=== PATIENT | male | born 1970 | race Caucasian/White ===

== ENCOUNTER 2017-05-14 12:53 | Inpatient (IN) | payer SELFPAY ==
[~2017-05-14] VITALS: Ht 172.7 cm; Wt 154.3 kg
[2017-05-14] VITALS (10 sets, daily range): BP systolic 153–239; BP diastolic 71–163; PULSE 80–103; RESP 18–21; TEMP 97.4–98.1; O2SAT 92–98
[2017-05-14] MEDS ORDERED: LISI10TA3 PO (14:15)
[2017-05-14] MEDS ORDERED: METF850T PO (14:15)
[2017-05-14] MEDS ORDERED: ALPR0.5T3 PO (14:20)
[2017-05-14] MEDS ORDERED: METO50TA PO (14:20)
[2017-05-14] MEDS ORDERED: HYDR-3583 PO (14:20)
[2017-05-14] MEDS ORDERED: SIMV40TA PO (14:20)
[2017-05-14] MEDS ORDERED: SERT-129 PO (14:20)
[2017-05-14] MEDS ORDERED: SODIUM CHLOR 0.9% 1000 ML INJ 1,000 ML IV SCH ×2 (14:25→16:22)
[2017-05-14] MEDS ORDERED: SODIUM CHLORIDE 0.9% FLUSH 10 ML FLUSH IV FLUSH PRN (14:30)
--- NOTE | 2017-05-14 14:38 | PD ---
HPI Chief Complaint: Abdominal Pain Time Seen by Provider: 13:59 Travel History International Travel<30 days: No Contact w/Intl Traveler<30days: No Traveled to known affect area: No History of Present Illness HPI So 46-year-old man who presents to the emergency department complaining of abdominal pain. He reports that about a week or 2 ago he had some epigastric pain and gas-like bloating that went away on its own. Symptoms got worse and he went to [facility] where he was diagnosed with liver inflammation and was told he needed surgery of his gallbladder out. He however improved with antibiotics and was discharged home a day or 2 ago. After being discharged home in worsening pain in the epigastrium and right upper quadrant, worse with any eating. States has pain with drinking water also. Not had previous similar symptoms in the past. No other complaints. History Past Medical History Narrative Medical Diabetes Hypertension on hyperlipidemia Obesity Past Surgical History Surgical History: No Previous Surgery Social History Alcohol Use: Yes (OCC) Tobacco Use: No Allergies-Medications (Allergen,Severity, Reaction): Coded Allergies: No Known Allergies (Unverified , 05/14/17) Reported Meds & Prescriptions Reported Meds & Active Scripts Active Reported Hydrocodone-Acetamin 10-325 mg (Hydrocodone/Acetaminophen) 10 Mg-325 Mg Tablet 10 Mg PO Q6HR PRN Alprazolam 0.5 Mg Tab 0.5 Mg PO Q4H PRN Sertraline (Sertraline HCl) 100 Mg Tab 100 Mg PO DAILY Simvastatin 40 Mg Tab 40 Mg PO HS Metoprolol Tartrate 50 Mg Tab 50 Mg PO BID Lisinopril 10 Mg Tab 10 Mg PO BID Metformin (Metformin HCl) 850 Mg Tab 850 Mg PO BIDPC Review of Systems Except as stated in HPI: all other systems reviewed are Neg Physical Exam Narrative GENERAL: This 46-year-old man, no acute distress. SKIN: Focused skin assessment warm/dry. HEAD: Atraumatic. Normocephalic. EYES: Pupils equal and round. No scleral icterus. No injection or drainage. ENT: No nasal bleeding or discharge. Mucous membranes pink and moist. NECK: Trachea midline. No JVD. CARDIOVASCULAR: Regular rate and rhythm. No murmur appreciated. RESPIRATORY: No accessory muscle use. Clear to auscultation. Breath sounds equal bilaterally. GASTROINTESTINAL: Obese, rotund. Moderate epigastric and right upper quadrant tenderness with a little bit of voluntary guarding. Minimal diffuse tenderness. MUSCULOSKELETAL: No obvious deformities. No edema. NEUROLOGICAL: Awake and alert. No obvious cranial nerve deficits. Motor grossly within normal limits. Normal speech. Data Data Last Documented VS Vital Signs Date Time Temp Pulse Resp B/P (MAP) Pulse Ox O2 Delivery O2 Flow Rate FiO2 05/14/17 14:09 18 05/14/17 12:55 97.4 92 195/128 (150) 94 Orders Orders Complete Blood Count With Diff (05/14/17 14:25) Comprehensive Metabolic Panel (05/14/17 14:25) Lipase (05/14/17 14:25) Prothrombin Time / Inr (Pt) (05/14/17 14:25) Act Partial Throm Time (Ptt) (05/14/17 14:25) Us Abdomen Gallbladder (05/14/17 ) Iv Access Insert/Monitor (05/14/17 14:25) Ecg Monitoring (05/14/17 14:25) Oximetry (05/14/17 14:25) NPO (05/14/17 14:25) Sodium Chlor 0.9% 1000 Ml Inj (Ns 1000 M (05/14/17 14:25) Sodium Chloride 0.9% Flush (Ns Flush) (05/14/17 14:30) Electrocardiogram (05/14/17 ) Admit Order (Ed Use Only) (05/14/17 ) Vital Signs (Adult) Q4H (05/14/17 16:22) Diet Npo (05/14/17 Dinner) Activity Oob With Assistance (05/14/17 16:22) Notify Dr: Other (05/14/17 16:22) Consult General Surgery (05/14/17 ) Labs Laboratory Tests Test 05/14/17 14:31 White Blood Count 9.1 TH/MM3 Red Blood Count 5.35 MIL/MM3 Hemoglobin 14.9 GM/DL Hematocrit 44.9 % Mean Corpuscular Volume 83.9 FL Mean Corpuscular Hemoglobin 27.9 PG Mean Corpuscular Hemoglobin Concent 33.2 % Red Cell Distribution Width 14.4 % Platelet Count 227 TH/MM3 Mean Platelet Volume 9.5 FL Neutrophils (%) (Auto) 75.6 % Lymphocytes (%) (Auto) 11.6 % Monocytes (%) (Auto) 9.7 % Eosinophils (%) (Auto) 2.5 % Basophils (%) (Auto) 0.6 % Neutrophils # (Auto) 6.9 TH/MM3 Lymphocytes # (Auto) 1.1 TH/MM3 Monocytes # (Auto) 0.9 TH/MM3 Eosinophils # (Auto) 0.2 TH/MM3 Basophils # (Auto) 0.1 TH/MM3 CBC Comment DIFF FINAL Differential Comment Prothrombin Time 12.0 SEC Prothromb Time International Ratio 1.2 RATIO Activated Partial Thromboplast Time 27.7 SEC Blood Urea Nitrogen 22 MG/DL Creatinine 1.05 MG/DL Random Glucose 112 MG/DL Total Protein 7.2 GM/DL Albumin 3.7 GM/DL Calcium Level 9.0 MG/DL Alkaline Phosphatase 97 U/L Aspartate Amino Transf (AST/SGOT) 26 U/L Alanine Aminotransferase (ALT/SGPT) 66 U/L Total Bilirubin 1.2 MG/DL Sodium Level 141 MEQ/L Potassium Level 4.3 MEQ/L Chloride Level 108 MEQ/L Carbon Dioxide Level 28.5 MEQ/L Anion Gap 5 MEQ/L Estimat Glomerular Filtration Rate 75 ML/MIN Lipase 158 U/L MDM Medical Decision Making Medical Screen Exam Complete: Yes Emergency Medical Condition: Yes Medical Record Reviewed: Yes Interpretation(s) LABS: CBC is unremarkable. CMP is generally unremarkable. Total bili is a little elevated. Lipase is normal. Coags are unremarkable, INR 1.2. Gallbladder ultrasound: Gallbladder [place] thick, some surrounding ascites. My review of EKG: A flutter, variable block, rate of 86. Differential Diagnosis Cholecystitis, biliary disease, pancreatitis, gastritis, bowel obstruction, other Narrative Course Medical decision making INITIAL: 46-year-old man, presents with right upper quadrant and epigastric abdominal pain. Reportedly just admitted to [facility] is only treated medically for cholecystitis. Likely recurrent symptoms. We'll check right upper quadrant ultrasound, labs, we'll attempt to get records from [facility]. FINAL: Reviewed records from the [place]. Reviewed labs. Patient apparently developed a flutter well in the hospital. We'll check EKG here. CT scan there did show right upper quadrant inflammatory changes with a thickened gallbladder suggest cholecystitis. According the records patient left AMA. There is no plan for surgical intervention at that time. Reviewed records here. Repeat ultrasound. Clinically patient likely has cholecystitis. Spoke with Dr. Ho, with general surgery. Recommend patient be admitted to medicine, he will consult. Physician Communication Physician Communication Spoke with Dr. Ho, will consult on patient. Spoke with Dr. Rivera, will admit patient. Diagnosis Primary Impression: Acute cholecystitis Admitting Information Admitting Physician Requests: Admit Janusz Escamilla MD May 14, 2017 14:38
[2017-05-14 15:07] LABS: AUTOMATED NEUTROPHIL # 6.9 TH/MM3 (1.8-7.7); BASOPHIL # 0.1 TH/MM3 (0-0.2); BASOPHIL % 0.6 % (0.0-2.0); EOSINOPHIL # 0.2 TH/MM3 (0-0.4); EOSINOPHIL % 2.5 % (0.0-4.0); HEMATOCRIT 44.9 % (39.0-51.0); HEMO FLAGS DIFF FINAL; LYMPH % 11.6 % (9.0-44.0); LYMPHOCYTE # 1.1 TH/MM3 (1.0-4.8); MEAN CELL VOLUME 83.9 FL (80.0-100.0); MEAN CORPUSCULAR HEMOGLOBIN 27.9 PG (27.0-34.0); MEAN CORPUSCULAR HGB CONC 33.2 % (32.0-36.0); MONO % 9.7 % (0.0-8.0); NEUT % 75.6 % (16.0-70.0); PLATELET COUNT 227 TH/MM3 (150-450); RED BLOOD COUNT 5.35 MIL/MM3 (4.50-5.90); RED CELL DISTRIBUTION WIDTH 14.4 % (11.6-17.2); WHITE BLOOD COUNT 9.1 TH/MM3 (4.0-11.0)
[2017-05-14 15:20] LABS: APTT (PATIENT) 27.7 SEC (24.3-30.1); INTERNATIONAL NORMALIZED RATIO 1.2 RATIO
[2017-05-14 15:22] LABS: ANION GAP 5 MEQ/L (5-15); AST (GOT) 26 U/L (15-37); BICARBONATE 28.5 MEQ/L (21.0-32.0); BLOOD UREA NITROGEN 22 MG/DL (7-18); CHLORIDE 108 MEQ/L (98-107); GLOMERULAR FILTRATION RATE 75 ML/MIN (>89); POTASSIUM 4.3 MEQ/L (3.5-5.1); SODIUM (NA) 141 MEQ/L (136-145)
[2017-05-14 15:25] LABS: ALKALINE PHOSPHATASE 97 U/L (45-117); ALT (GPT) 66 U/L (12-78); TOTAL BILIRUBIN ADULT 1.2 MG/DL (0.2-1.0)
--- NOTE | 2017-05-14 15:40 | RADRPT ---
EXAM DATE/TIME: 05/14/2017 15:10 [place] COMPARISON: No previous studies available for comparison. INDICATIONS : Right upper quadrant pain. MEDICAL HISTORY : Hypercholesterolemia. Hypertension. Sleep apnea. Diabetes. Alcohol use. SURGICAL HISTORY : None. ENCOUNTER: Initial ACUITY: 1 day PAIN SCORE: 7/10 LOCATION: Right upper quadrant MEASUREMENTS: LIVER: 20.2 cm length COMMON DUCT: Non-visualized RIGHT KIDNEY: 12.7 x 5.1 x 6.8 cm FINDINGS: Small right pleural effusion LIVER: Heterogenous echogenic echotexture without focal lesion or ductal dilatation. The liver is quite enla rged. There is some fluid ascites around the liver COMMON DUCT: No intraluminal mass or stone visualized. GALLBLADDER: Gallbladder wall is mildly thickened. Contains no stones, demonstrates no pericholecystic fluid. PANCREAS: The visualized portions are within normal limits. RIGHT KIDNEY: No evidence of hydronephrosis, stone, or mass. CONCLUSION: Heterogeneous enlarged echogenic liver with surrounding ascites. The adjacent gallbladder wall is diandra ewhat thick walled. Janusz Fernandez MD on May 14, 2017 at 15:37 Board Certified Radiologist. This report was verified electronically.
[2017-05-14] MEDS ORDERED: BISACODYL 10 MG SUPP RECTAL PRN (16:30)
[2017-05-14] MEDS ORDERED: MAGNESIUM HYDROXIDE SUSP 30 ML CUP PO PRN (16:30)
[2017-05-14] MEDS ORDERED: SENNOSIDES 8.6 MG TAB PO PRN (16:30)
[2017-05-14] MEDS ORDERED: GLUCAGON 1 MG/ML VIAL OTHER PRN (16:30)
[2017-05-14] MEDS ORDERED: ACETAMINOPHEN 325 MG TAB PO PRN (16:30)
[2017-05-14] MEDS ORDERED: NALOXONE HCL 0.4 MG/ML AMP IV PUSH PRN (16:30)
[2017-05-14] MEDS ORDERED: LACTULOSE SYRUP 20 GM/30 ML CUP PO PRN (16:30)
[2017-05-14] MEDS ORDERED: DEXTROSE 50% IN WATER 50 ML VIAL(D50) IV PUSH PRN (16:30)
[2017-05-14] MEDS ORDERED: TEMAZEPAM 15 MG CAP PO PRN (16:30)
[2017-05-14] MEDS ORDERED: MORPHINE SULFATE 4 MG/ML INJ IV PUSH ONE (16:45)
[2017-05-14] MEDS ORDERED: ENOXAPARIN SODIUM 40 MG/0.4 ML SYRINGE SQ SCH (17:00)
[2017-05-14] MEDS: INSULIN ASPART SUPPLEMENTAL SCALE SQ SCH ×2 (17:00→21:00)
[2017-05-14] MEDS ORDERED: LABETALOL HCL 100 MG/20 ML VIAL IV PUSH ONE (17:30)
[2017-05-14] MEDS ORDERED: hydrALAZINE HCL 10 MG TAB PO PRN (17:30)
[2017-05-14] MEDS ORDERED: ENALAPRILAT 2.5 MG/2 ML VIAL IV PUSH PRN (17:30)
--- NOTE | 2017-05-14 17:33 | HHI.HP ---
[facility] Unknown Admission Diagnosis cholecystitis, atrial flutter Diagnoses: Chief Complaint: abdominal pain Travel History International Travel<30 Days: No Contact w/Intl Traveler <30 Da: No Traveled to Known Affected Are: No History of Present Illness 46-year-old man with PMH of hypertension, atrial flutter, diabetes mellitus type 2, anxiety/depression, morbid obesity with BMI of 51.8 who presents to the emergency department complaining of abdominal pain. He reports that about a week or 2 ago he had some epigastric pain and gas-like bloating that went away on its own. Symptoms got worse and he went to [place] where he was diagnosed with liver inflammation and was told he needed surgery of his gallbladder. He however improved with antibiotics and was discharged home a day or 2 ago. After being discharged home in worsening pain in the epigastrium and right upper quadrant, worse with any eating. States has pain with drinking water also. Not had previous similar symptoms in the past. No fever ro chills. No n/v/d/c. No headache, no motor deficit. Patiemnt appears anxious also noted hos BP elevated while in the ED. Says his current meds controls well his BP and BP readings are good at home. No other complaints. Patient apparently developed a flutter while in the hospital. CT scan there did show right upper quadrant inflammatory changes with a thickened gallbladder suggest cholecystitis. According the records patient left AMA. There is no plan for surgical intervention at that time. Review of Systems Except as stated in HPI: all other systems reviewed are Neg Past Family Social History Past Medical History HTN, Aflutter, DM2, anxiety/depression , obesity Past Surgical History none Reported Medications Reported Meds & Active Scripts Active Reported Hydrocodone-Acetamin 10-325 mg (Hydrocodone/Acetaminophen) 10 Mg-325 Mg Tablet 10 Mg PO Q6HR PRN Alprazolam 0.5 Mg Tab 0.5 Mg PO Q4H PRN Sertraline (Sertraline HCl) 100 Mg Tab 100 Mg PO DAILY Simvastatin 40 Mg Tab 40 Mg PO HS Metoprolol Tartrate 50 Mg Tab 50 Mg PO BID Lisinopril 10 Mg Tab 10 Mg PO BID Metformin (Metformin HCl) 850 Mg Tab 850 Mg PO BIDPC Allergies: Coded Allergies: No Known Allergies (Unverified , 05/14/17) Family History Mom breast CA Dad pancreatic CA Parents with HTN Social History Occasional EtOH No tobacco or illicit drug use Physical Exam Vital Signs Vital Signs Date Time Temp Pulse Resp B/P (MAP) Pulse Ox O2 Delivery O2 Flow Rate FiO2 05/14/17 17:28 80 18 202/139 (160) 98 Room Air 05/14/17 14:09 18 05/14/17 12:55 97.4 92 18 195/128 (150) 94 Physical Exam GENERAL: This is a pleasant, well-nourished, well-developed patient, in some distress appears anxious. SKIN: No rashes, ecchymoses or lesions. Cool and dry. HEAD: Atraumatic. Normocephalic. No temporal or scalp tenderness. EYES: Pupils equal round and reactive. Extraocular motions intact. No scleral icterus. No injection or drainage. ENT: Nose without bleeding, purulent drainage or septal hematoma. Throat without erythema, tonsillar hypertrophy or exudate. Uvula midline. Airway patent. NECK: Trachea midline. No JVD or lymphadenopathy. Supple, nontender, no meningeal signs. CARDIOVASCULAR: Regular rate and rhythm without murmurs, gallops, or rubs. RESPIRATORY: Clear to auscultation. Breath sounds equal bilaterally. No wheezes , rales, or rhonchi. GASTROINTESTINAL: Abdomen soft, obese, epigastric tenderness, distended. No guarding. MUSCULOSKELETAL: Extremities without clubbing, cyanosis, or edema. No joint tenderness, effusion, or edema noted. No calf tenderness. Negative Homans sign bilaterally. NEUROLOGICAL: Awake and alert. Cranial nerves II through XII intact. Motor and sensory grossly within normal limits. Five out of 5 muscle strength in all muscle groups. Normal speech. Laboratory Laboratory Tests Test 05/14/17 14:31 White Blood Count 9.1 Red Blood Count 5.35 Hemoglobin 14.9 Hematocrit 44.9 Mean Corpuscular Volume 83.9 Mean Corpuscular Hemoglobin 27.9 Mean Corpuscular Hemoglobin Concent 33.2 Red Cell Distribution Width 14.4 Platelet Count 227 Mean Platelet Volume 9.5 Neutrophils (%) (Auto) 75.6 Lymphocytes (%) (Auto) 11.6 Monocytes (%) (Auto) 9.7 Eosinophils (%) (Auto) 2.5 Basophils (%) (Auto) 0.6 Neutrophils # (Auto) 6.9 Lymphocytes # (Auto) 1.1 Monocytes # (Auto) 0.9 Eosinophils # (Auto) 0.2 Basophils # (Auto) 0.1 CBC Comment DIFF FINAL Differential Comment Prothrombin Time 12.0 Prothromb Time International Ratio 1.2 Activated Partial Thromboplast Time 27.7 Blood Urea Nitrogen 22 Creatinine 1.05 Random Glucose 112 Total Protein 7.2 Albumin 3.7 Calcium Level 9.0 Alkaline Phosphatase 97 Aspartate Amino Transf (AST/SGOT) 26 Alanine Aminotransferase (ALT/SGPT) 66 Total Bilirubin 1.2 Sodium Level 141 Potassium Level 4.3 Chloride Level 108 Carbon Dioxide Level 28.5 Anion Gap 5 Estimat Glomerular Filtration Rate 75 Lipase 158 Result Diagram: 05/14/17 1431 05/14/17 1431 Imaging Last Impressions Gall Bladder Ultrasound 05/14/17 0000 Signed Impressions: Service Date/Time: Sunday, May 14, 2017 15:10 - CONCLUSION: Heterogeneous enlarged echogenic liver with surrounding ascites. The adjacent gallbladder wall is somewhat thick walled. Janusz Fernandez MD Caprini VTE Risk Assessment Caprini VTE Risk Assessment: Mod/High Risk (score >= 2) Caprini Risk Assessment Model Point Value = 1 Point Value = 2 Point Value = 3 Point Value = 5 Age 41-60 Minor surgery BMI > 25 kg/m2 Swollen legs Varicose veins or History of unexplained or recurrent spontaneous Oral contraceptives or hormone replacement Sepsis (< 1 month) Serious lung disease, including pneumonia (< 1 month) Abnormal pulmonary function Acute myocardial infarction Congestive heart failure (< 1 month) History of inflammatory bowel disease Medical patient at bed rest Age 61-74 Arthroscopic surgery Major open surgery (> 45 min) Laparoscopic surgery (> 45 min) Malignancy Confined to bed (> 72 hours) Immobilizing plaster cast Central venous access Age >= 75 History of VTE Family history of VTE Factor V Leiden Prothrombin [id number] Lupus anticoagulant Anticardiolipin antibodies Elevated serum homocysteine Heparin-induced thrombocytopenia Other congenital or acquired thrombophilia Stroke (< 1 month) Elective arthroplasty Hip, pelvis, or leg fracture Acute spinal cord injury (< 1 month) Prophylaxis Regimen Total Risk Factor Score Risk Level Prophylaxis Regimen 0-1 Low Early ambulation 2 Moderate Order ONE of the following: *Sequential Compression Device (SCD) *Heparin 5000 units SQ BID 3-4 Higher Order ONE of the following medications: *Heparin 5000 units SQ TID *Enoxaparin/Lovenox 40 mg SQ daily (WT < 150 kg, CrCl > 30 mL/min) *Enoxaparin/Lovenox 30 mg SQ daily (WT < 150 kg, CrCl > 10-29 mL/min) *Enoxaparin/Lovenox 30 mg SQ BID (WT < 150 kg, CrCl > 30 mL/min) AND/OR *Sequential Compression Device (SCD) 5 or more Highest Order ONE of the following medications: *Heparin 5000 units SQ TID (Preferred with Epidurals) *Enoxaparin/Lovenox 40 mg SQ daily (WT < 150 kg, CrCl > 30 mL/min) *Enoxaparin/Lovenox 30 mg SQ daily (WT < 150 kg, CrCl > 10-29 mL/min) *Enoxaparin/Lovenox 30 mg SQ BID (WT < 150 kg, CrCl > 30 mL/min) AND *Sequential Compression Device (SCD) Assessment and Plan Assessment and Plan 46-year-old man, presents with right upper quadrant and epigastric abdominal pain. Reportedly just admitted to [facility] is only treated medically for cholecystitis. Likely recurrent symptoms. Gallbladder ultrasound: Gallbladder [place] thick, some surrounding ascites. Records from [facility] reviewed and discussed with Dr Bourgeois ED physician . Patient apparently developed a flutter while in the hospital. CT scan there did show right upper quadrant inflammatory changes with a thickened gallbladder suggest cholecystitis. According the records patient left AMA. There is no plan for surgical intervention at that time. Abdominal pain Cholecystitis Hypertension urgency A flutter per records. EKG: A flutter, variable block, rate of 86. Anxiety. depression Diabetes mellitus type 2 Morbid obesity with BMI of 51.8. Diet and exercise Hepatomegaly with ascites per US EKG reviewed and findings discussed with ED physician : A flutter, variable block, rate of 86. Continue home meds metoprolol and lisinopril Received labetalol in the ED. Add hydralazine PRN Monitor VS Keep NPO until seen by Dr Vic [facility] surgery Hold metformin. ISS, accucecks Antiemetics .laxatives as need Pain meds with norco PO and morphine IV fopr breakthrough pain Restart home meds as appropriate Monitor on telemetry Consult gen surgery , Dr Ho will come and evaluate Consult cardiology DVT ppx lovenox SCD/TEds Physician Certification 2 Midnight Certification Type: Admission for Inpatient Services Order for Inpatient Services The services are ordered in accordance with Medicare regulations or non- Medicare payer requirements, as applicable. In the case of services not specified as inpatient-only, they are appropriately provided as inpatient services in accordance with the 2-midnight benchmark. Estimated LOS (days): 3 days is the estimated time the patient will need to remain in the hospital, assuming treatment plan goals are met and no additional complications. Post-Hospital Plan: Home Amy Rivera MD May 14, 2017 17:33
[2017-05-14] MEDS ORDERED: PANTOPRAZOLE SODIUM 40 MG VIAL IV PUSH ONE (18:15)
[2017-05-14] MEDS: hydrALAZINE HCL 20 MG/ML VIAL IV PUSH PRN (18:52)
[2017-05-14] MEDS ORDERED: cloNIDine HCL 0.1 MG TAB PO ONE (19:45)
[2017-05-14] MEDS: ACETAMINOPHEN/HYDROcodone 325 MG/10 MG TAB PO PRN (19:48)
[2017-05-14] MEDS: ALPRAZolam 0.5 MG TAB PO PRN (19:48)
[2017-05-14] MEDS: SODIUM CHLORIDE 0.9% FLUSH 10 ML FLUSH IV FLUSH SCH (19:52)
[2017-05-14] MEDS: ONDANSETRON HCL 4 MG/2 ML VIAL IVP PRN (19:52)
[2017-05-14] MEDS: DOCUSATE SODIUM 50 MG/SENNA 8.6 MG TAB PO SCH (19:56)
[2017-05-14] MEDS ORDERED: PIPERACIL-TAZO 3.375 GM PREMIX 50 ML IV SCH (20:00)
[2017-05-14] MEDS ORDERED: LISINOPRIL 10 MG TAB PO SCH (21:00)
[2017-05-14] MEDS ORDERED: PRAVASTATIN SOD 80 MG TAB PO SCH (21:00)
[2017-05-14] MEDS ORDERED: METOPROLOL TARTRATE 50 MG TAB PO SCH (21:00)
[2017-05-14] MEDS: MORPHINE SULFATE 2 MG/ML INJ IV PUSH PRN (21:55)
[2017-05-14] MEDS: SODIUM CHLORIDE 0.9% FLUSH 10 ML FLUSH IV FLUSH PRN (21:55)
[2017-05-14] MEDS: PIPERACILLIN/TAZ 3.375 GM VIAL 3.375 GM in SODIUM CHLORIDE 0.9% INJ 100 ML IV SCH (23:00)
[2017-05-15] VITALS (17 sets, daily range): BP systolic 91–155; BP diastolic 59–98; PULSE 68–151; RESP 18–22; TEMP 97.6–99.7; O2SAT 70–100
[2017-05-15] MEDS: ONDANSETRON HCL 4 MG/2 ML VIAL IVP PRN (02:13)
[2017-05-15] MEDS: ACETAMINOPHEN/HYDROcodone 325 MG/10 MG TAB PO PRN (02:13)
[2017-05-15] MEDS: ALPRAZolam 0.5 MG TAB PO PRN (02:13)
[2017-05-15] MEDS: SODIUM CHLORIDE 0.9% FLUSH 10 ML FLUSH IV FLUSH PRN ×2 (02:14→04:06)
[2017-05-15] MEDS: PIPERACILLIN/TAZ 3.375 GM VIAL 3.375 GM in SODIUM CHLORIDE 0.9% INJ 100 ML IV SCH ×4 (04:05→21:41)
[2017-05-15] MEDS: MORPHINE SULFATE 2 MG/ML INJ IV PUSH PRN (04:06)
[2017-05-15] MEDS ORDERED: SODIUM BICARBONATE 8.4% INJ 50 MEQ/50 ML SYR IV ONE (05:00)
[2017-05-15] MEDS ORDERED: EPINEPHrine HCL (1:10,000) 1 MG/10 ML SYRINGE IV ONE (05:00)
[2017-05-15] MEDS ORDERED: ATROPINE SULFATE 1 MG/10 ML SYRINGE IV ONE (05:00)
[2017-05-15] MEDS ORDERED: PROCHLORPERAZINE INJ 10 MG/2 ML VIAL IV PUSH ONE (05:00)
--- NOTE | 2017-05-15 08:05 | PD.CONS ---
HPI Consult Requested By Primary Care Physician Unknown History of Present Illness 46-year-old man with PMH of hypertension, atrial flutter, diabetes mellitus type 2, anxiety/depression, morbid obesity consulted for Atrial Flutter. He presented to the emergency department complaining of abdominal pain for ~2 weeks. Abd pain associated bloating.. He was recently diagnosed with liver inflammation and was told he needed surgery of his gallbladder. He however improved with antibiotics and was discharged home. After being discharged he had recurrent pain in the epigastrium and right upper quadrant, worse with any eating. This AM we was found unresponsive in room in the PEA arrest and respiratory failure. He was intubated put on pressors and Tx to ICU. Review of Systems ROS Limitations: Clinical Condition, Intubated, Unresponsive Past Family Social History Allergies: Coded Allergies: No Known Allergies (Unverified , 05/14/17) Past Medical History HTN, Aflutter, DM2, anxiety/depression , obesity Past Surgical History none Reported Medications Reported Meds & Active Scripts Active Reported Hydrocodone-Acetamin 10-325 mg (Hydrocodone/Acetaminophen) 10 Mg-325 Mg Tablet 10 Mg PO Q6HR PRN Alprazolam 0.5 Mg Tab 0.5 Mg PO Q4H PRN Sertraline (Sertraline HCl) 100 Mg Tab 100 Mg PO DAILY Simvastatin 40 Mg Tab 40 Mg PO HS Metoprolol Tartrate 50 Mg Tab 50 Mg PO BID Lisinopril 10 Mg Tab 10 Mg PO BID Metformin (Metformin HCl) 850 Mg Tab 850 Mg PO BIDPC Active Ordered Medications Current Medications Medications (Trade) Dose Ordered Sig/Roberto Route Start Time Stop Time Status Last Admin (NS Flush) 2 ml UNSCH PRN IV FLUSH 05/14/17 16:30 05/15/17 04:06 (NS Flush) 2 ml BID IV FLUSH 05/14/17 21:00 05/14/17 19:52 (Tylenol) 650 mg Q4H PRN PO 05/14/17 16:30 (Zofran Inj) 4 mg Q6H PRN IVP 05/14/17 16:30 05/15/17 02:13 (Restoril) 15 mg HS PRN PO 05/14/17 16:30 (Lovenox Inj) 40 mg Q24H SQ 05/14/17 17:00 (Narcan Inj) 0.4 mg UNSCH PRN IV PUSH 05/14/17 16:30 (Mary Kate-Colace) 1 tab BID PO 05/14/17 21:00 (Milk Of Magnesia Liq) 30 ml Q12H PRN PO 05/14/17 16:30 (Senokot) 17.2 mg Q12H PRN PO 05/14/17 16:30 (Dulcolax Supp) 10 mg DAILY PRN RECTAL 05/14/17 16:30 (Lactulose Liq) 30 ml DAILY PRN PO 05/14/17 16:30 (Xanax) 0.5 mg Q4H PRN PO 05/14/17 16:30 05/15/17 02:13 ([place] 10-325 Mg) 1 tab Q6HR PRN PO 05/14/17 16:30 05/15/17 02:13 (Prinivil) 10 mg BID PO 05/14/17 21:00 05/14/17 19:47 (Lopressor) 50 mg BID PO 05/14/17 21:00 05/14/17 19:48 (Zoloft) 100 mg HS PO 05/15/17 21:00 (Pravachol) 80 mg HS PO 05/14/17 21:00 05/14/17 19:47 (D50w (Vial) Inj) 50 ml UNSCH PRN IV PUSH 05/14/17 16:30 (Glucagon Inj) 1 mg UNSCH PRN OTHER 05/14/17 16:30 (NovoLOG SUPPLEMENTAL SCALE) 1 ACHS SLIDING SCALE SQ 05/14/17 17:00 (Morphine Inj) 2 mg Q4H PRN IV PUSH 05/14/17 16:30 05/15/17 04:06 (Apresoline Inj) 20 mg Q4H PRN IV PUSH 05/14/17 17:30 05/14/17 18:52 (Apresoline) 10 mg Q6HR PRN PO 05/14/17 17:30 (Vasotec Inj) 2.5 mg Q6H PRN IV PUSH 05/14/17 17:30 (Protonix) 20 mg DAILY PO 05/15/17 09:00 Piperacillin Sod/ Tazobactam Sod 3.375 gm/Sodium Chloride 100 ml @ 200 mls/hr Q6H IV 05/14/17 22:00 05/15/17 04:05 Family History Mom breast CA Dad pancreatic CA Parents with HTN Social History Occasional EtOH No tobacco or illicit drug use Physical Exam Vital Signs Vital Signs Date Time Temp Pulse Resp B/P (MAP) Pulse Ox O2 Delivery O2 Flow Rate FiO2 05/15/17 04:15 97.6 109 22 148/77 (100) 96 05/15/17 04:15 Room Air 05/15/17 03:46 119 05/14/17 23:49 87 05/14/17 23:12 94 Room Air 05/14/17 23:12 97.8 85 20 153/71 (98) 05/14/17 22:01 103 05/14/17 21:20 166/107 (126) 05/14/17 20:48 100 05/14/17 19:35 98.1 88 21 95 05/14/17 19:35 Room Air 05/14/17 19:35 217/125 (155) 05/14/17 18:49 97.5 92 21 239/163 (188) 92 215/147 (169) 05/14/17 17:28 80 18 202/139 (160) 98 Room Air 05/14/17 16:38 96 21 05/14/17 14:09 18 05/14/17 12:55 97.4 92 18 195/128 (150) 94 Physical Exam GENERAL: Well-nourished, well-developed patient. Sedated, intubated SKIN: Warm and dry. HEAD: Normocephalic. EYES: No scleral icterus. No injection or drainage. NECK: Supple, trachea midline. No JVD or lymphadenopathy. CARDIOVASCULAR: Regular rate and rhythm without murmurs, gallops, or rubs. RESPIRATORY: Breath sounds equal bilaterally. No accessory muscle use. GASTROINTESTINAL: Abdomen distended. Absent bowel sounds EXTREMITIES: No cyanosis, or edema. Laboratory Laboratory Tests Test 05/14/17 14:31 White Blood Count 9.1 Red Blood Count 5.35 Hemoglobin 14.9 Hematocrit 44.9 Mean Corpuscular Volume 83.9 Mean Corpuscular Hemoglobin 27.9 Mean Corpuscular Hemoglobin Concent 33.2 Red Cell Distribution Width 14.4 Platelet Count 227 Mean Platelet Volume 9.5 Neutrophils (%) (Auto) 75.6 Lymphocytes (%) (Auto) 11.6 Monocytes (%) (Auto) 9.7 Eosinophils (%) (Auto) 2.5 Basophils (%) (Auto) 0.6 Neutrophils # (Auto) 6.9 Lymphocytes # (Auto) 1.1 Monocytes # (Auto) 0.9 Eosinophils # (Auto) 0.2 Basophils # (Auto) 0.1 CBC Comment DIFF FINAL Differential Comment Prothrombin Time 12.0 Prothromb Time International Ratio 1.2 Activated Partial Thromboplast Time 27.7 Blood Urea Nitrogen 22 Creatinine 1.05 Random Glucose 112 Total Protein 7.2 Albumin 3.7 Calcium Level 9.0 Alkaline Phosphatase 97 Aspartate Amino Transf (AST/SGOT) 26 Alanine Aminotransferase (ALT/SGPT) 66 Total Bilirubin 1.2 Sodium Level 141 Potassium Level 4.3 Chloride Level 108 Carbon Dioxide Level 28.5 Anion Gap 5 Estimat Glomerular Filtration Rate 75 Lipase 158 Result Diagram: 05/14/17 1431 05/14/17 1431 Imaging Last Impressions Gall Bladder Ultrasound 05/14/17 0000 Signed Impressions: Service Date/Time: Sunday, May 14, 2017 15:10 - CONCLUSION: Heterogeneous enlarged echogenic liver with surrounding ascites. The adjacent gallbladder wall is somewhat thick walled. Janusz Fernandez MD Assessment and Plan Problem List: (1) Atrial flutter ICD Codes: I48.92 - Unspecified atrial flutter Plan: 46 yo M consulted for new onset of atrial flutter admitted with acute acalculous cholecystitis. He had a respiratory arrest/PEA arrest this morning found unresponsive. ACLS protocol performed. He was resuscitated and transferred to ICU. Atrial Flutter likely due to the acute ongoing abdominal process, no documented VFib, VTACH or cardiac complaints. Preliminary read on ECHO severe RV dilation, ?PE. Recommendations: 1. Rate control for Atrial Flutter with Cardizem and ASA 325mg PO daily 2. 2Decho 3. Consider Chest and Abd CTA 4. Wean pressors as tolerated by BP 5. Telemetry 6. Avoid electrolytes abnormalities 7. Cycle cardiac markers Thank you for the opportunity to participate in the care of this patient Will be available on a PRN basis for any questions or concerns Case discuss with Dr. Sidhu (2) Acute cholecystitis ICD Codes: K81.0 - Acute cholecystitis Status: Acute Matos-Carlin López MD May 15, 2017 08:05
--- NOTE | 2017-05-15 08:44 | HHI.FPPN ---
Addendum to progress note ADDENDUM Reason for addendum: Additonal documentation Additional information Resident responded to Code Blue ~[id number] 05/15. On resident arrival, Scientific Aide was at bedside and CPR was already initiated. Patient received Epinephrine per ACLS protocol. Resident assisted in CPR. Patient intubated and after ROSC was transferred to ICU for further management. Dandre Bowers MD, R3 May 15, 2017 08:44
--- NOTE | 2017-05-15 08:47 | PD.CONS ---
HPI Service General Surgery Consult Requested By Dr. Escamilla Reason for Consult cholecystitis Primary Care Physician Unknown History of Present Illness On my initial evaluation of the patient this morning he did not respond to verbal or physical cues. He was lying on his side in bed with eyes open and head and face cyanotic appearing. He was diaphoretic. It was apparent he was not breathing and there was no pulse. Code blue was called and compressions were started. The code team promptly arrived and continued compressions and ACLS, followed quickly by Dr. Sidhu. Please see other notes for details of the code. All history obtained from the chart and physician communication due to the patient's clinical status- Mr. Wetzel is a 46 yo M who began to have upper and RUQ abdominal pain a week or two ago. He was admitted to [facility] where he was noted to have evidence of acalculous cholecystitis and diagnosed with new onset atrial flutter. He was either discharged home or left AMA a couple of days ago after being treated with antibiotics. He presented yesterday with recurrent epigastric and RUQ pain and gallbladder u/s revealed gallbladder wall thickening and heterogenous echogenic liver with surrounding ascites. EKG revealed atrial flutter. He was admitted and placed on IV Zosyn. Assessment and Plan Assessment and Plan 46 yo M with new onset of atrial flutter and acute acalculous cholecystitis. He had a cardiac arrest this morning and was unresponsive when I arrived at the bedside. ACLS protocol was performed. He was resuscitated and transferred to [facility] under care of Dr. Sidhu. Lazarus Ho MD May 15, 2017 08:47
[2017-05-15 08:56] LABS: AUTOMATED NEUTROPHIL # 9.9 TH/MM3 (1.8-7.7); BASOPHIL # 0.1 TH/MM3 (0-0.2); BASOPHIL % 0.7 % (0.0-2.0); EOSINOPHIL # 0.2 TH/MM3 (0-0.4); EOSINOPHIL % 1.5 % (0.0-4.0); HEMATOCRIT 48.2 % (39.0-51.0); HEMO FLAGS DIFF FINAL; LYMPH % 13.4 % (9.0-44.0); LYMPHOCYTE # 1.7 TH/MM3 (1.0-4.8); MEAN CELL VOLUME 84.8 FL (80.0-100.0); MEAN CORPUSCULAR HEMOGLOBIN 27.1 PG (27.0-34.0); MONO % 8.1 % (0.0-8.0); NEUT % 76.3 % (16.0-70.0); PLATELET COUNT 284 TH/MM3 (150-450); RED BLOOD COUNT 5.68 MIL/MM3 (4.50-5.90); RED CELL DISTRIBUTION WIDTH 14.9 % (11.6-17.2); WHITE BLOOD COUNT 12.9 TH/MM3 (4.0-11.0)
[2017-05-15] MEDS ORDERED: PANTOPRAZOLE SOD 20 MG DELAYED RELEASE TAB PO SCH (09:00)
[2017-05-15] MEDS: DOCUSATE SODIUM 50 MG/SENNA 8.6 MG TAB PO SCH ×2 (09:00→19:52)
[2017-05-15] MEDS: SODIUM CHLORIDE 0.9% FLUSH 10 ML FLUSH IV FLUSH SCH ×2 (09:00→19:47)
[2017-05-15 09:08] LABS: BLOOD GAS CARBOXYHEMOGLOBIN 1.3 % (0-4); BLOOD GAS HCO3 22 mmol/L (22-26); BLOOD GAS METHEMOGLOBIN 1.1 % (0-2); BLOOD GAS O2 HGB SATURATION 95 % (90-100); BLOOD GAS OXYGEN CONTENT 20.2 Vol % (12.0-20.0); BLOOD GAS PCO2 54 mmHg (38-42); BLOOD GAS PO2 118 mmHg (61-120); TEMP CORR TO 98.6
[2017-05-15 09:08] LABS: BICARBONATE 23.9 MEQ/L (21.0-32.0); POTASSIUM 4.4 MEQ/L (3.5-5.1)
[2017-05-15 09:09] LABS: CRITICAL VALUE YES; DRAW SITE LT RADIAL; FIO2 50 %; NUMBER OF ARTERIAL PUNCTURES 1; OXYGEN DEVICE VENTILATOR; VENT SETTINGS 600/16/+8
[2017-05-15 09:10] LABS: STAT YES; ULNAR PULSE PRESENT
[2017-05-15] MEDS ORDERED: SODIUM BICARBONATE 8.4% INJ 50 MEQ/50 ML SYR ONE (09:14)
--- NOTE | 2017-05-15 09:18 | PD.PROCEDR ---
Procedure Note Procedure Emergency intubation during CODE BLUE: INTUBATION: The patient was put in optimal position for the procedure. Rapid sequence intubation was initiated by me using no meds as the patient was unresponsive. DL with Mac 4 blade, Grade 1 view. The patient was intubated with a 7.5 cuffed endotracheal tube (8.0 ETT was not available in kit). Tube placement was confirmed by visualization of the tube and balloon passing through the cords, capnometry and subsequent chest x-ray is pending. Breath sounds were equal and well aerated bilaterally postintubation. No breath sounds over stomach. Patient tolerated procedure well. Calvin Sidhu MD May 15, 2017 09:18
--- NOTE | 2017-05-15 09:27 | PD.PROCEDR ---
Procedure Note Procedure CPR NOTE: I responded to code blue. Patient was found on bed unresponsive and cyanotic pulseless by Dr. Ho. Immediate CPR was started. Patient received 1 amp epinephrine. Rhythm on monitor was slow Afib and patient was still in PEA and cyanotic, unconscious. CPR continued additional 2 amps of epinephrine (total 3 amps of epinephrine) 1 amp bicarb, 1 amp atropine given. I intubated patient and few minutes later there was return of spontaneous circulation. Code blue initiated at 0825, ROSC at 0833, duration 8 minutes. Unknown when patient developed cardiac arrest, as patient was not on telemetry. Last time seen normal with normal white count of by RN at 0800 AM. Postcode there is eye- opening or purposeful movements but withdraws to pain. Check CT of the brain CT pulmonary angiogram cardiac enzymes EKG. Calvin Sidhu MD May 15, 2017 09:27
--- NOTE | 2017-05-15 09:28 | PD.PROCEDR ---
Central Line Procedure REASON FOR PROCEDURE Central venous access PROCEDURE PERFORMED Central line placement: Right femoral central line CONSENT Emergency procedure postcode blue DESCRIPTION OF THE PROCEDURE The patient was placed in supine, appropriate position. The area was exposed and cleansed with ChloraPrep, times two. Sterile drape was used to cover the patient, with the site exposed, under sterile conditions including cap, face mask, sterile gown, and sterile gloves. On single attempt, the introducer needle was inserted with negative pressure in syringe and venous flash was obtained. The guide wire was then advanced without any restriction and the needle was removed. The dilator was used without any complications. Using Seldinger technique the 20 CM triple lume catheter was advanced over the guide wire to a depth of 18 centimeters. The guide wire was removed. All ports were aspirated with dark venous blood return and flushed easily with sterile saline. All ports were capped. Antibiotic disc was placed around central line at puncture site. The central line was secured to the skin with two interrupted 2.0 silk sutures. The area was bandaged with sterile see-through central line bandage. COMPLICATIONS: No apparent complications ESTIMATED BLOOD LOSS: Less than 2 cc. Calvin Sidhu MD May 15, 2017 09:28
--- NOTE | 2017-05-15 09:41 | RADRPT ---
EXAM DATE/TIME: 05/15/2017 09:21 [facility] COMPARISON: No previous studies available for comparison. INDICATIONS : Post intubation. MEDICAL HISTORY : Hypercholesterolemia. Hypertension. Sleep apnea. Diabetes. Alcohol use. SURGICAL HISTORY : None. ENCOUNTER: Initial ACUITY: 1 day PAIN SCORE: Non-responsive. LOCATION: Bilateral chest FINDINGS: ET tube in good position. Severe cardiomegaly with moderate interstitial edema and congestive failur e. CONCLUSION: ET in good position. Shaka Calvin MD FACR on May 15, 2017 at 9:39 Board Certified Radiologist. This report was verified electronically.
--- NOTE | 2017-05-15 09:59 | PD.PROCEDR ---
Procedure Note Procedure REASON FOR PROCEDURE Hemodynamic monitoring PROCEDURE PERFORMED Right radial arterial line CONSENT Emergency procedure postcode blue DESCRIPTION OF THE PROCEDURE The patient was placed in supine, appropriate position. The area was exposed and cleansed with ChloraPrep, times two. Sterile drape was used to cover site exposed, under sterile conditions including cap, face mask, sterile gown, and sterile gloves. On single attempt, the introducer needle was inserted and arterial flash was obtained. The guide wire was then advanced without any restriction and the needle was removed. Using Seldinger technique the arterial catheter was advanced over the guide wire and guide wire was removed. Good arterial wave form obtained. Antibiotic disc was placed around central line at puncture site. The arterial line was secured to the skin with one interrupted 2.0 silk sutures. The area was bandaged with sterile see-through central line bandage. COMPLICATIONS: No apparent complications ESTIMATED BLOOD LOSS: Less than 1 cc. Calvin Sidhu MD May 15, 2017 09:59
[2017-05-15 10:12] LABS: HEMATOCRIT 42.7 % (39.0-51.0); MEAN CELL VOLUME 84.5 FL (80.0-100.0); MEAN CORPUSCULAR HEMOGLOBIN 28.5 PG (27.0-34.0); MEAN CORPUSCULAR HGB CONC 33.8 % (32.0-36.0); PLATELET COUNT 267 TH/MM3 (150-450); RED BLOOD COUNT 5.05 MIL/MM3 (4.50-5.90); RED CELL DISTRIBUTION WIDTH 14.8 % (11.6-17.2); REVIEW FLAG FINAL; WHITE BLOOD COUNT 9.4 TH/MM3 (4.0-11.0)
[2017-05-15 10:20] LABS: INTERNATIONAL NORMALIZED RATIO 1.4 RATIO; PROTHROMBIN TIME - PATIENT 13.7 SEC (9.8-11.6)
[2017-05-15 10:25] LABS: ANION GAP 12 MEQ/L (5-15); AST (GOT) 43 U/L (15-37); BICARBONATE 26.4 MEQ/L (21.0-32.0); BLOOD UREA NITROGEN 27 MG/DL (7-18); CHLORIDE 105 MEQ/L (98-107); GLOMERULAR FILTRATION RATE 48 ML/MIN (>89); MAGNESIUM 2.7 MG/DL (1.5-2.5); POTASSIUM 3.8 MEQ/L (3.5-5.1); SODIUM (NA) 143 MEQ/L (136-145)
[2017-05-15 10:26] LABS: ALT (GPT) 80 U/L (12-78)
[2017-05-15 10:28] LABS: ALKALINE PHOSPHATASE 94 U/L (45-117); TOTAL BILIRUBIN ADULT 1.5 MG/DL (0.2-1.0)
--- NOTE | 2017-05-15 10:34 | PD.CONS ---
[facility] Service Critical Care Medicine Consult Requested By Dr. Rivera Reason for Consult PEA arrest Acute hypoxemic, hypercarbic respiratory failure Possible anoxic encephalopathy Cardiogenic shock Probable myoclonus Congestive heart failure Primary Care Physician Unknown History of Present Illness Patient is a 46-year-old morbidly obese male with past medical history significant for hypertension, atrial flutter, diabetes mellitus type 2, anxiety, depression, morbid obesity with BMI of 52, obstructive sleep apnea who was admitted to the hospitalist service with a right upper quadrant pain and probable acute cholecystitis. He was recently admitted to [facility] for probable acute cholecystitis, he improved with antibiotics and was discharged home about or left AMA (unclear at this time) 2 days ago. He presented to [place] with similar complaints 05/14/17. CT scan at OSH showed right upper quadrant inflammatory changes with a thickened gallbladder suggest cholecystitis. Today. 05/15/17 Dr. Ho from general surgery was consulted and when he came to see the patient, patient was found unresponsive and pulseless. A CODE BLUE was called immediately and CPR was immediately started. see CPR note for details. I immediately responded to CODE BLUE. Rhythm was PEA/ Slow Atrial fibrillation. Patient received CPR 3 rounds of epinephrine, 1 amp of atropine per Dr. Lopez for slow PEA, and one amp of bicarbonate. Post intubation, patient had return of spontaneous circulation, total CPR time was 8 min. Patient was emergently moved to the ICU. Aggressive fluid resuscitation was continued, and there was palpable pulse and recordable blood pressure. Blood pressure started trending down in ICU and patient was started on Levophed infusion. His rhythm remained A. fib atrial fibrillation with RVR. I placed an emergent right femoral central line and a right radial arterial line for invasive blood pressure monitoring. Without sedation patient does not open eyes and I did not notice any purposeful movements. Patient also showing twitching of lips, and intermittent stiffening of whole body. A stat echo showed RV dilatation, with RV systolic dysfunction and TR, indicating possibility of PE. A stat PE pulmonary angiogram is pending at this time. Patient probably from the evidence available had a pulmonary arrest followed by cardiac arrest. Given the clinical picture I do not think he'll benefit from induced hypothermia for neuro protection, he had primary respiratory arrest. son and sister updated in detail. case also discussed with Dr. Matos and Dr. Ho Review of Systems ROS Limitations: Intubated, Unresponsive Past Family Social History Allergies: Coded Allergies: No Known Allergies (Unverified , 05/14/17) Past Medical History Atrial Flutter Hypertension Morbid obesity Atrial Flutter DM2 Anxiety/depression , obesity Past Surgical History Mom breast CA Dad pancreatic CA Parents with HTN Social History Occasional EtOH No tobacco or illicit drug use Reported Medications Hydrocodone-Acetamin 10-325 mg (Hydrocodone/Acetaminophen) 10 Mg-325 Mg Tablet 10 Mg PO Q6HR PRN Alprazolam 0.5 Mg Tab 0.5 Mg PO Q4H PRN Sertraline (Sertraline HCl) 100 Mg Tab 100 Mg PO DAILY Simvastatin 40 Mg Tab 40 Mg PO HS Metoprolol Tartrate 50 Mg Tab 50 Mg PO BID Lisinopril 10 Mg Tab 10 Mg PO BID Metformin (Metformin HCl) 850 Mg Tab 850 Mg PO BIDPC Active Ordered Medications Reviewed Family History According to the records mother had breast cancer and father had pancreatic cancer Social History No tobacco or drug use Occasional alcohol use Physical Exam Vital Signs Vital Signs Date Time Temp Pulse Resp B/P (MAP) Pulse Ox O2 Delivery O2 Flow Rate FiO2 05/15/17 08:02 98.1 131 20 144/98 (113) 70 05/15/17 04:15 97.6 109 22 148/77 (100) 96 05/15/17 04:15 Room Air 05/15/17 03:46 119 05/14/17 23:49 87 05/14/17 23:12 94 Room Air 05/14/17 23:12 97.8 85 20 153/71 (98) 05/14/17 22:01 103 05/14/17 21:20 166/107 (126) 05/14/17 20:48 100 05/14/17 19:35 98.1 88 21 95 05/14/17 19:35 Room Air 05/14/17 19:35 217/125 (155) 05/14/17 18:49 97.5 92 21 239/163 (188) 92 215/147 (169) 05/14/17 17:28 80 18 202/139 (160) 98 Room Air 05/14/17 16:38 96 21 05/14/17 14:09 18 05/14/17 12:55 97.4 92 18 195/128 (150) 94 Physical Exam GENERAL: Unresponsive, central cyanosis. Ongoing CPR and bag and mask ventilation SKIN: Cool and dry. HEAD: Normocephalic EYES: Pupils equal round ENT: Currently getting bag and mask ventilation limiting exam NECK: Large neck, trachea midline CARDIOVASCULAR: In cardiac arrest, Rhythm PEA, slow A Fib. Ongoing CPR RESPIRATORY: Getting Bag Mask ventilation. Diminished air entry bilaterally GASTROINTESTINAL: Abdomen protuberant obese MUSCULOSKELETAL: Extremities cyanotic. Perfused NEUROLOGICAL: Comatose. No motor movements noted Laboratory Laboratory Tests Test 05/14/17 14:31 05/15/17 07:10 05/15/17 08:53 05/15/17 09:20 White Blood Count 9.1 12.9 9.4 Red Blood Count 5.35 5.68 5.05 Hemoglobin 14.9 15.4 14.4 Hematocrit 44.9 48.2 42.7 Mean Corpuscular Volume 83.9 84.8 84.5 Mean Corpuscular Hemoglobin 27.9 27.1 28.5 Mean Corpuscular Hemoglobin Concent 33.2 32.0 33.8 Red Cell Distribution Width 14.4 14.9 14.8 Platelet Count 227 284 267 Mean Platelet Volume 9.5 9.2 9.2 Neutrophils (%) (Auto) 75.6 76.3 Lymphocytes (%) (Auto) 11.6 13.4 Monocytes (%) (Auto) 9.7 8.1 Eosinophils (%) (Auto) 2.5 1.5 Basophils (%) (Auto) 0.6 0.7 Neutrophils # (Auto) 6.9 9.9 Lymphocytes # (Auto) 1.1 1.7 Monocytes # (Auto) 0.9 1.0 Eosinophils # (Auto) 0.2 0.2 Basophils # (Auto) 0.1 0.1 CBC Comment DIFF FINAL DIFF FINAL Differential Comment Prothrombin Time 12.0 13.7 Prothromb Time International Ratio 1.2 1.4 Activated Partial Thromboplast Time 27.7 Blood Urea Nitrogen 22 24 27 Creatinine 1.05 1.21 1.56 Random Glucose 112 181 197 Total Protein 7.2 7.1 Albumin 3.7 3.5 Calcium Level 9.0 8.9 8.3 Alkaline Phosphatase 97 94 Aspartate Amino Transf (AST/SGOT) 26 43 Alanine Aminotransferase (ALT/SGPT) 66 80 Total Bilirubin 1.2 1.5 Sodium Level 141 138 143 Potassium Level 4.3 4.4 3.8 Chloride Level 108 106 105 Carbon Dioxide Level 28.5 23.9 26.4 Anion Gap 5 8 12 Estimat Glomerular Filtration Rate 75 64 48 Lipase 158 Blood Gas Puncture Site LT RADIAL Blood Gas Patient Temperature 98.6 Blood Gas HCO3 22 Blood Gas Base Excess -5.0 Blood Gas Oxygen Saturation 95 Arterial Blood pH 7.22 Arterial Blood Partial Pressure CO2 54 Arterial Blood Partial Pressure O2 118 Arterial Blood Oxygen Content 20.2 Arterial Blood Carboxyhemoglobin 1.3 Arterial Blood Methemoglobin 1.1 Blood Gas Hemoglobin 15.0 Oxygen Delivery Device VENTILATOR Blood Gas Ventilator Setting 600/16/+8 Blood Gas Inspired Oxygen 50 Phosphorus Level 8.4 Magnesium Level 2.7 Lactic Acid Level 5.8 Result Diagram: 05/15/1791905/15/17919 Imaging CXR Severe cardiomegaly, CHF Septic Shock Reassessment Septic shock perfusion: reassessment completed Assessment and Plan Assessment and Plan NEURO: Possible anoxic brain injury - Stat CT of the head, stat EEG following CAT scan - Appears to be respiratory arrest followed by cardiac arrest, I do not see any benefit in induced hypothermia - Reassess neuro after CT head and chest - Continue frequent neuro checks RESP: Acute hypoxemic and hypercarbic respiratory failure - Emergently intubated and placed on mechanical ventilation - CT pulmonary angiogram rule out PE - DuoNeb every 6 hours scheduled and when necessary - Ventilator bundle, Sputum culture CV: PEA Arrest Cardiogenic shock Lactic acidosis Atrial fibrillation with RVR - Status post PEA cardiac arrest, CPR with ROSC in 8 min. (Down time may be more than 8 min, patient was found unresponsive and was not on telemetry) - Normal saline IV fluids 3L bolus and 150 ml per hour - Levophed to keep map above 65 - Atrial fib/flutter rate controlled with Cardizem - 2D Echo with RV dilation, and dysfunction. CT PE pending - Cardiology Dr. Matos. Rate controlled with Cardizem or beta corbin as tolerated - Serial to cardiac enzymes GI: Acute cholecystitis Morbid obesity with BMI 52 - Nothing by mouth, IV famotidine - Not stable for any procedures. Empiric Zosyn : Acute kidney injury - Monitor renal function closely. Weiner catheter. - Rise in Creat most likely ATN ID: Acute cholecystitis Probable sepsis - Das culture sent. Blood urine and sputum cultures sent. HEME: - Monitor CBC, CMP ENDO: - Electrolyte replacement per protocol PROPH: - Bilateral lower extremity SCDs. A right CT of the head and CT pulmonary angiogram prior to anticoagulation. IV famotidine LINES: - Right femoral central line and right radial arterial line placed in the ICU CC time 95 min discontinuously excluding procedure Reassessment after CT head: On sedation hold patient localizes to pain and appears purposeful. But exam limited by patient biting down on tube. Due to presumed respiratory arrest followed by PEA, and improving neuro exam,he is not a candidate for code cool Code Status Full Discussed Condition With Dr. Matos, Calvin Lacy MD May 15, 2017 10:34
[2017-05-15] MEDS ORDERED: ROCURONIUM INJ 50 MG/5 ML VIAL ONE (10:42)
[2017-05-15] MEDS ORDERED: PROPOFOL 500 MG/50 ML INJ 50 ML ONE (10:42)
[2017-05-15] MEDS ORDERED: RESP: ALBUTEROL 2.5 MG/IPRATROPIUM 0.5 MG NEB (PRN) ONE (10:45)
[2017-05-15] MEDS ORDERED: SODIUM CHLOR 0.9% 1000 ML INJ 1,000 ML IV SCH (11:00)
[2017-05-15 11:27] LABS: CREATINE KINASE 131 U/L (39-308)
[2017-05-15] MEDS ORDERED: POTASSIUM PHOSPHATE MONOBASIC 500 MG TAB PO/TUBE PRN (11:30)
[2017-05-15] MEDS ORDERED: POTASSIUM PHOSPHATE INJ 30 MMOL in SODIUM CHLOR 0.9% 250 ML INJ 250 ML IV PRN (11:30)
[2017-05-15] MEDS ORDERED: POTASSIUM PHOSPHATE MONOBASIC 500 MG TAB PO PRN (11:30)
[2017-05-15] MEDS ORDERED: SODIUM PHOSPHATE INJ 30 MMOL in SODIUM CHLOR 0.9% 250 ML INJ 240 ML IV PRN (11:30)
[2017-05-15] MEDS ORDERED: POTASSIUM CHLORIDE 25 MEQ EFFERVESCENT TAB PO PRN (11:30)
[2017-05-15] MEDS ORDERED: MAGNESIUM OXIDE 400 MG TAB PO PRN (11:30)
[2017-05-15] MEDS ORDERED: POTASSIUM CHLOR 20 MEQ PREMIX 100 ML IV PRN ×2 (11:30)
[2017-05-15] MEDS ORDERED: MAGNESIUM SULFATE INJ 2 GM in SODIUM CHLORIDE 0.9% INJ 96 ML IV PRN (11:30)
[2017-05-15] MEDS ORDERED: POTASSIUM CHLOR 40 MEQ PREMIX 100 ML IV PRN ×2 (11:30)
[2017-05-15] MEDS ORDERED: MAGNESIUM SULFATE INJ 4 GM in SODIUM CHLORIDE 0.9% INJ 92 ML IV PRN (11:30)
[2017-05-15 11:39] LABS: CKMB 2.4 NG/ML (0.5-3.6)
[2017-05-15] MEDS ORDERED: IOHEXOL 350 MG/ML 10 ML VIAL (for RAD DIAG) IVCONTRAST ONE (11:56)
[2017-05-15] MEDS: INSULIN ASPART SUPPLEMENTAL SCALE SQ SCH ×3 (12:00→20:28)
--- NOTE | 2017-05-15 12:05 | RADRPT ---
EXAM DATE/TIME: 05/15/2017 11:33 [facility] COMPARISON: No previous studies available for comparison. INDICATIONS : Altered mental status. RADIATION DOSE: 56.17 CTDIvol (mGy) ; Patient body habitus MEDICAL HISTORY : Hypertension. diabetes SURGICAL HISTORY : None. ENCOUNTER: Initial ACUITY: 1 day PAIN SCALE: Non-responsive LOCATION: Bilateral head TECHNIQUE: Multiple contiguous axial images were obtained of the head. Using automated exposure control and adj ustment of the mA and/or kV according to patient size, radiation dose was kept as low as reasonably a chievable to obtain optimal diagnostic quality images. DICOM format image data is available electro nically for review and comparison. FINDINGS: CEREBRUM: The ventricles are normal for age. No evidence of midline shift, mass lesion, hemorrhage or acute in farction. No extra-axial fluid collections are seen. POSTERIOR FOSSA: The cerebellum and brainstem are intact. The 4th ventricle is midline. The cerebellopontine angle i s unremarkable. EXTRACRANIAL: The visualized portion of the orbits is intact. Mucoperiosteal thickening in the ethmoid air cells an d inferior left maxillary sinus. SKULL: The calvaria is intact. No evidence of skull fracture. CONCLUSION: 1. No acute intracranial abnormality. J Luis Maharaj MD on May 15, 2017 at 12:02 Board Certified Radiologist. This report was verified electronically.
--- NOTE | 2017-05-15 12:09 | RADRPT ---
EXAM DATE/TIME: 05/15/2017 11:43 [facility] COMPARISON: No previous studies available for comparison. INDICATIONS : Respiratory distress. IV CONTRAST: 73 cc Omnipaque 350 (iohexol) IV RADIATION DOSE: 28.75 CTDIvol (mGy) ; Patient body habitus MEDICAL HISTORY : Hypertension. diabetes SURGICAL HISTORY : None. ENCOUNTER: Initial ACUITY: 1 day PAIN SCALE: Non-responsive LOCATION: Bilateral chest TECHNIQUE: Volumetric scanning of the chest was performed using a pulmonary embolism protocol MIP images were re constructed. Using automated exposure control and adjustment of the mA and/or kV according to patien t size, radiation dose was kept as low as reasonably achievable to obtain optimal diagnostic quality images. DICOM format image data is available electronically for review and comparison. Follow-up recommendations for detected pulmonary nodules are based at a minimum on nodule size and pa tient risk factors according to Fleischner Society Guidelines. FINDINGS: There is no central pulmonary emboli Moderate bibasilar consolidative changes with small right pleural effusion. There is no pericardial effusion There is reflux of contrast into the hepatic veins suggesting elevated right heart pressure. There is no pneumothorax There is no radiographic significant adenopathy. CONCLUSION: Negative central pulmonary emboli Bibasilar consolidations with small right pleural effusion. Shaka Calvin MD FACR on May 15, 2017 at 12:04 Board Certified Radiologist. This report was verified electronically.
[2017-05-15] MEDS: FAMOTIDINE 20 MG/2 ML VIAL IV PUSH SCH (13:00)
[2017-05-15] MEDS: PROPOFOL 1000 MG/100 ML INJ 100 ML IV PRN ×4 (13:18→22:40)
[2017-05-15 15:48] LABS: BLOOD GAS BASE EXCESS -2.5 mmol/L (-2-2); BLOOD GAS CARBOXYHEMOGLOBIN 1.1 % (0-4); BLOOD GAS HCO3 22 mmol/L (22-26); BLOOD GAS METHEMOGLOBIN 1.1 % (0-2); BLOOD GAS O2 HGB SATURATION 97 % (90-100); BLOOD GAS PCO2 36 mmHg (38-42); BLOOD GAS PO2 185 mmHg (61-120); BLOOD GAS TOTAL HGB 12.9 G/DL (12.0-16.0); CRITICAL VALUE NO; TEMP CORR TO 98.6
[2017-05-15 15:49] LABS: DRAW SITE ART LINE; FIO2 60 %; OXYGEN DEVICE VENTILATOR; STAT YES
--- NOTE | 2017-05-15 16:30 | EKG ---
Date Performed: 05/14/2017 Time Performed: 16:11:24 PTAGE: 46 years EKG: ATRIAL FLUTTER/TACHYCARDIA ABNORMAL RHYTHM ECG NO PREVIOUS TRACING DOCTOR: Chadwick Joe Interpretating Date/Time 05/15/2017 16:28:52
[2017-05-15 17:25] LABS: CREATINE KINASE 114 U/L (39-308)
[2017-05-15 17:38] LABS: CKMB 2.5 NG/ML (0.5-3.6)
[2017-05-15] MEDS: DEXT 5%-NACL 0.9% 1000 ML INJ 1,000 ML IV SCH (18:00)
[2017-05-15] MEDS: hydrALAZINE HCL 20 MG/ML VIAL IV PUSH PRN (19:52)
[2017-05-15] MEDS ORDERED: SERTRALINE HCL 100 MG TAB PO SCH (21:00)
--- NOTE | 2017-05-15 22:31 | MG ---
cc: DANELLE ESPINOZA MD Lab No: Date: 05/15/2017 Age: Sex: M Race: ELECTROENCEPHALOGRAM RECORD NUMBER [id number] DATE OF 1970 HISTORY A 46-year-old with a history of diabetes, hypertension, cardiac arrest. DESCRIPTION Low grade delta 1-2 Hz with rare low voltage spindle activity. Very flat line type of appearance. EKG artifact running through. No driving with photic stimulation. Limited EEG variability reactivity. Myogenic artifact when the patient was noted to be sucking on the bite block. Single lead EKG showing sinus tachycardia. INTERPRETATION Severe encephalopathy as noted above. Clinical correlation. Danelle Espinoza MD MG/KK /8:59 PM /10:22 PM
[2017-05-15] MEDS ORDERED: FUROSEMIDE 40 MG/4 ML VIAL IV PUSH ONE (23:45)
[2017-05-16] VITALS (19 sets, daily range): BP systolic 72–149; BP diastolic 46–84; PULSE 68–137; RESP 14–18; TEMP 97.7–99.6; O2SAT 94–100
[2017-05-16] MEDS: METOPROLOL TARTRATE 25 MG TAB PO SCH ×3 (00:19→19:49)
[2017-05-16] MEDS: hydrALAZINE HCL 20 MG/ML VIAL IV PUSH PRN (00:22)
[2017-05-16] MEDS: FAMOTIDINE 20 MG/2 ML VIAL IV PUSH SCH ×2 (00:22→12:30)
[2017-05-16] MEDS: PROPOFOL 1000 MG/100 ML INJ 100 ML IV PRN ×6 (00:23→23:35)
[2017-05-16] MEDS ORDERED: DILTIAZEM HCL 25 MG/5 ML VIAL IV ONE (00:45)
[2017-05-16] MEDS: DEXT 5%-NACL 0.9% 1000 ML INJ 1,000 ML IV SCH (01:41)
[2017-05-16 02:18] LABS: CREATINE KINASE 114 U/L (39-308)
[2017-05-16 02:50] LABS: CKMB 2.5 NG/ML (0.5-3.6)
[2017-05-16] MEDS: PIPERACILLIN/TAZ 3.375 GM VIAL 3.375 GM in SODIUM CHLORIDE 0.9% INJ 100 ML IV SCH ×4 (04:00→21:56)
[2017-05-16 05:27] LABS: AUTOMATED NEUTROPHIL # 8.9 TH/MM3 (1.8-7.7); BASOPHIL % 0.4 % (0.0-2.0); EOSINOPHIL # 0.1 TH/MM3 (0-0.4); EOSINOPHIL % 0.5 % (0.0-4.0); HEMO FLAGS DIFF FINAL; LYMPHOCYTE # 0.7 TH/MM3 (1.0-4.8); MEAN CELL VOLUME 82.4 FL (80.0-100.0); MEAN CORPUSCULAR HEMOGLOBIN 27.7 PG (27.0-34.0); MEAN CORPUSCULAR HGB CONC 33.6 % (32.0-36.0); MONO % 7.8 % (0.0-8.0); NEUT % 84.3 % (16.0-70.0); PLATELET COUNT 218 TH/MM3 (150-450); RED BLOOD COUNT 5.09 MIL/MM3 (4.50-5.90); RED CELL DISTRIBUTION WIDTH 14.8 % (11.6-17.2); WHITE BLOOD COUNT 10.6 TH/MM3 (4.0-11.0)
[2017-05-16 05:37] LABS: ANION GAP 8 MEQ/L (5-15); AST (GOT) 49 U/L (15-37); BLOOD UREA NITROGEN 19 MG/DL (7-18); CHLORIDE 109 MEQ/L (98-107); GLOMERULAR FILTRATION RATE 62 ML/MIN (>89); MAGNESIUM 2.3 MG/DL (1.5-2.5); POTASSIUM 3.5 MEQ/L (3.5-5.1); SODIUM (NA) 144 MEQ/L (136-145)
[2017-05-16 05:40] LABS: ALKALINE PHOSPHATASE 82 U/L (45-117); ALT (GPT) 105 U/L (12-78); TOTAL BILIRUBIN ADULT 1.1 MG/DL (0.2-1.0)
[2017-05-16] MEDS: INSULIN ASPART SUPPLEMENTAL SCALE SQ SCH ×4 (08:00→21:00)
[2017-05-16] MEDS: DOCUSATE SODIUM 50 MG/SENNA 8.6 MG TAB PO SCH ×2 (08:41→21:22)
[2017-05-16] MEDS: SODIUM CHLORIDE 0.9% FLUSH 10 ML FLUSH IV FLUSH SCH ×2 (08:42→21:00)
[2017-05-16 09:43] LABS: BACTERIA, URINE RARE /hpf; BLOOD, URINE NEG (NEG); GLUCOSE,URINE NEG (NEG); KETONE, URINE 10 mg/dL (NEG); MUCUS URINE FEW /lpf (OCC); NITRITE,URINE NEG (NEG); SQUAMOUS EPITHELIAL CELL URINE <1 /hpf (0-5); URIC ACID CRYSTALS, URINE OCC /hpf; URINE COLOR YELLOW (YELLW/STRAW)
[2017-05-16] MEDS ORDERED: RESP: ALBUTEROL 2.5 MG/IPRATROPIUM 0.5 MG NEB (PRN) NEB (09:45)
[2017-05-16] MEDS ORDERED: POTASSIUM CHLOR 40 MEQ PREMIX 100 ML IV ONE (09:45)
[2017-05-16] MEDS ORDERED: FUROSEMIDE 40 MG/4 ML VIAL IV PUSH ONE (09:45)
[2017-05-16] MEDS: RESP: ALBUTEROL 2.5 MG/IPRATROPIUM 0.5 MG NEB (SCH) NEB ×3 (10:00→16:53)
--- NOTE | 2017-05-16 10:04 | HHI.CCPN ---
Subjective Remarks/Hospital Course Patient is a 46-year-old morbidly obese male with past medical history significant for hypertension, atrial flutter, diabetes mellitus type 2, anxiety, depression, morbid obesity with BMI of 52, obstructive sleep apnea who was admitted to the hospitalist service with a right upper quadrant pain and probable acute cholecystitis. He was recently admitted to [facility] for probable acute cholecystitis, he improved with antibiotics and was discharged home about or left AMA (unclear at this time) 2 days ago. He presented to [place] with similar complaints 05/14/17. CT scan at OSH showed right upper quadrant inflammatory changes with a thickened gallbladder suggest cholecystitis. Today. 05/15/17 Dr. Ho from general surgery was consulted and when he came to see the patient, patient was found unresponsive and pulseless. A CODE BLUE was called immediately and CPR was immediately started. see CPR note for details. I immediately responded to CODE BLUE. Rhythm was PEA/ Slow Atrial fibrillation. Patient received CPR 3 rounds of epinephrine, 1 amp of atropine per Dr. Lopez for slow PEA, and one amp of bicarbonate. Post intubation, patient had return of spontaneous circulation, total CPR time was 8 min. Patient was emergently moved to the ICU. Aggressive fluid resuscitation was continued, and there was palpable pulse and recordable blood pressure. Blood pressure started trending down in ICU and patient was started on Levophed infusion. His rhythm remained A. fib atrial fibrillation with RVR. I placed an emergent right femoral central line and a right radial arterial line for invasive blood pressure monitoring. Without sedation patient does not open eyes and I did not notice any purposeful movements. Patient also showing twitching of lips, and intermittent stiffening of whole body. A stat echo showed RV dilatation, with RV systolic dysfunction and TR, indicating possibility of PE. A stat PE pulmonary angiogram is pending at this time. Patient probably from the evidence available had a pulmonary arrest followed by cardiac arrest. Given the clinical picture I do not think he'll benefit from induced hypothermia for neuro protection, he had primary respiratory arrest. son and sister updated in detail. case also discussed with Dr. Matos and Dr. Ho 05/16: Remains intubated sedation held. Opens eyes spontaneously appears to track follows basic commands but gets agitated very fast. Moving all 4 extremities. Urine output 4.5 L in 24 hours Objective Vital Signs Date Time Temp Pulse Resp B/P (MAP) Pulse Ox O2 Delivery O2 Flow Rate FiO2 05/16/17 09:25 96 Nasal Cannula 6 05/16/17 08:22 40 05/16/17 08:00 97.7 84 18 125/75 (92) Intake and Output 05/16/17 05/16/17 05/17/17 08:00 16:00 00:00 Intake Total 1300 ml Output Total 4000 ml Balance -2700 ml Result Diagram: 05/16/17 0450 05/16/17 0450 Other Results Laboratory Tests Test 05/15/17 15:36 Blood Gas Puncture Site ART LINE Blood Gas Patient Temperature 98.6 Blood Gas HCO3 22 mmol/L (22-26) Blood Gas Base Excess -2.5 mmol/L (-2-2) Blood Gas Oxygen Saturation 97 % (90-100) Arterial Blood pH 7.40 (7.380-7.420) Arterial Blood Partial Pressure CO2 36 mmHg (38-42) Arterial Blood Partial Pressure O2 185 mmHg (61-120) Arterial Blood Oxygen Content 18.0 Vol % (12.0-20.0) Arterial Blood Carboxyhemoglobin 1.1 % (0-4) Arterial Blood Methemoglobin 1.1 % (0-2) Blood Gas Hemoglobin 12.9 G/DL (12.0-16.0) Oxygen Delivery Device VENTILATOR Blood Gas Ventilator Setting 600/18/+8/1.0 Blood Gas Inspired Oxygen 60 % Imaging CXR Severe cardiomegaly, CHF Objective Remarks GENERAL: Intubated sedation held opens eyes SKIN: Cool and dry. HEAD: Normocephalic EYES: Pupils equal round ENT: Orotracheally intubated NECK: Large neck, trachea midline CARDIOVASCULAR: Tachycardic irregular rhythm. No murmurs RESPIRATORY: Air entry diminished but equal bilaterally. On ACV GASTROINTESTINAL: Abdomen protuberant obese MUSCULOSKELETAL: Extremities cyanotic. Perfused NEUROLOGICAL: Intubated off sedation moves all extremities. Eyes are open spontaneously intermittently follows commands gets agitated Urinary Catheter: Yes Assessment to: Continue Vascular Central Line Catheter: Yes Assessment to: Remove A/P Assessment and Plan NEURO: S/p cardiac arrest - Current neuro exam is reassuring-no significant evidence of anoxic brain injury -CT of the head no acute findings, EEG severe encephalopathy no seizures - Appears to have sustained respiratory arrest followed by cardiac arrest, with improving neuro exam was deemed to be not a candidate for cortical - Continue frequent neuro checks RESP: Acute hypoxemic and hypercarbic respiratory failure - Emergently intubated and placed on mechanical ventilation - CT pulmonary angiogram negative for pulmonary embolism - Due to improving neuro exam start weaning trials with possible extubation - DuoNeb every 6 hours scheduled and when necessary - Ventilator bundle, Sputum culture CV: PEA Arrest Cardiogenic shock Lactic acidosis Atrial fibrillation with RVR - Status post PEA cardiac arrest, CPR with ROSC in 8 min. (Down time may be more than 8 min, patient was found unresponsive and was not on telemetry) - Discontinue IV fluids. IV Lasix 40 mg 1 - Levophed to keep map above 65, if neeeded - Atrial fib/flutter rate controlled with Cardizem - 2D Echo with RV dilation, and dysfunction. CT PE neg - Cardiology Dr. Matos. Rate controlled with Cardizem or beta corbin as tolerated - Serial to cardiac enzymes GI: Acute cholecystitis Morbid obesity with BMI 52 - Nothing by mouth, IV famotidine - Not stable for any procedures. Empiric Zosyn - Cholecystostomy tube once more stable : Acute kidney injury - Monitor renal function closely. Weiner catheter. - Rise in Creat most likely ATN ID: Acute cholecystitis Probable sepsis - Blood urine and sputum cultures sent. - Continue Zosyn for now HEME: - Monitor CBC, CMP ENDO: - Electrolyte replacement per protocol PROPH: - Bilateral lower extremity SCDs. Start sq heparin. IV famotidine LINES: - Right femoral central line and right radial arterial line placed in the ICU CC time 40 min discontinuously excluding procedure Calvin Sidhu MD May 16, 2017 10:04
[2017-05-16] MEDS ORDERED: DEXMEDETOMIDINE INJ 200 MCG in SODIUM CHLORIDE 0.9% INJ 50 ML IV PRN (11:00)
[2017-05-16] MEDS ORDERED: MIDAZOLAM HCL 5 MG/ML VIAL (1 ML) ONE (11:09)
[2017-05-16] MEDS ORDERED: ROCURONIUM INJ 50 MG/5 ML VIAL ONE ×3 (11:09→11:33)
[2017-05-16] MEDS ORDERED: PROPOFOL 500 MG/50 ML INJ 50 ML ONE (11:23)
[2017-05-16] MEDS ORDERED: MIDAZOLAM HCL 5 MG/ML VIAL (1 ML) IV ONE (11:45)
[2017-05-16] MEDS ORDERED: ROCURONIUM INJ 50 MG/5 ML VIAL IV ONE ×2 (11:45)
[2017-05-16] MEDS ORDERED: PROPOFOL 1000 MG/100 ML INJ 100 ML IV PRN (11:45)
--- NOTE | 2017-05-16 12:07 | PD.PROCEDR ---
Procedure Note Procedure Procedure Emergency intubation due to impending respiratory arrest: INTUBATION: Bag and mask ventilation being carried put by Dr. Zamudio and RT. Sats eventually got up to 85%. Rapid sequence intubation was initiated by me using Versed 5 mg and 100 mg Rocuronium. I performed DL with Mac 4 blade, Grade 2-3 view. Difficult intubation with Large tongue and soft tissue, and patient being profusely diaphoretic leading to 2 attempts. The patient was intubated with a 8.0 cuffed endotracheal tube. Tube placement was confirmed by visualization of the tube and balloon passing through the cords, capnometry and subsequent chest x-ray is pending. Breath sounds were equal and well aerated bilaterally postintubation. No breath sounds over stomach. Patient tolerated procedure well. Calvin Sidhu MD May 16, 2017 12:07
[2017-05-16] MEDS: HEPARIN SODIUM - SQ 10,000 UNITS/ML VIAL SQ SCH ×2 (12:30→21:53)
--- NOTE | 2017-05-16 12:42 | RADRPT ---
EXAM DATE/TIME: 05/16/2017 12:18 [facility] COMPARISON: CHEST SINGLE AP, May 15, 2017, 9:21. INDICATIONS : Post Intubation. MEDICAL HISTORY : None. Hypertension. diabetes SURGICAL HISTORY : ENCOUNTER: Subsequent ACUITY: 2 days PAIN SCORE: Non-responsive. LOCATION: Bilateral chest FINDINGS: 2 portable frontal views of the chest show an endotracheal tube with the tip 2 cm from the kevin. Na sogastric tube tip is in the fundus of the stomach. The heart is mildly enlarged. Small bilateral ple ural effusions with predominantly basilar interalveolar infiltrates. This has progressed from the maame or study. CONCLUSION: Worsening pulmonary edema. Endotracheal tube in good position. Derek Kitchen Jr., MD on May 16, 2017 at 12:38 Board Certified Radiologist. This report was verified electronically.
--- NOTE | 2017-05-16 12:50 | EKG ---
Date Performed: 05/15/2017 Time Performed: 14:51:12 PTAGE: 46 years EKG: Atrial flutter. Inferior T wave changes are nonspecific Abnormal ECG Since PREVIOUS TRACING , no significant change noted DOCTOR: Reggie Puckett Interpretating Date/Time 05/16/2017 12:49:39
[2017-05-16] MEDS: HALOPERIDOL LACTATE 5 MG/ML AMP IV PRN (21:22)
[2017-05-17] VITALS (15 sets, daily range): BP systolic 112–133; BP diastolic 57–92; PULSE 69–118; RESP 14; TEMP 98.7–99.1; O2SAT 97–100
[2017-05-17] MEDS: FAMOTIDINE 20 MG/2 ML VIAL IV PUSH SCH ×2 (01:05→13:00)
[2017-05-17] MEDS: PROPOFOL 1000 MG/100 ML INJ 100 ML IV PRN ×9 (04:00→22:26)
[2017-05-17] MEDS: PIPERACILLIN/TAZ 3.375 GM VIAL 3.375 GM in SODIUM CHLORIDE 0.9% INJ 100 ML IV SCH ×2 (04:01→10:26)
[2017-05-17] MEDS: RESP: ALBUTEROL 2.5 MG/IPRATROPIUM 0.5 MG NEB (SCH) NEB ×4 (04:38→20:56)
[2017-05-17] MEDS: HEPARIN SODIUM - SQ 10,000 UNITS/ML VIAL SQ SCH (05:48)
[2017-05-17] MEDS: INSULIN ASPART SUPPLEMENTAL SCALE SQ SCH ×4 (08:00→21:00)
--- NOTE | 2017-05-17 08:21 | HHI.CCPN ---
Subjective Remarks/Hospital Course Patient is a 46-year-old morbidly obese male with past medical history significant for hypertension, atrial flutter, diabetes mellitus type 2, anxiety, depression, morbid obesity with BMI of 52, obstructive sleep apnea who was admitted to the hospitalist service with a right upper quadrant pain and probable acute cholecystitis. He was recently admitted to [facility] for probable acute cholecystitis, he improved with antibiotics and was discharged home about or left AMA (unclear at this time) 2 days ago. He presented to [place] with similar complaints 05/14/17. CT scan at OSH showed right upper quadrant inflammatory changes with a thickened gallbladder suggest cholecystitis. Today. 05/15/17 Dr. Ho from general surgery was consulted and when he came to see the patient, patient was found unresponsive and pulseless. A CODE BLUE was called immediately and CPR was immediately started. see CPR note for details. I immediately responded to CODE BLUE. Rhythm was PEA/ Slow Atrial fibrillation. Patient received CPR 3 rounds of epinephrine, 1 amp of atropine per Dr. Lopez for slow PEA, and one amp of bicarbonate. Post intubation, patient had return of spontaneous circulation, total CPR time was 8 min. Patient was emergently moved to the ICU. Aggressive fluid resuscitation was continued, and there was palpable pulse and recordable blood pressure. Blood pressure started trending down in ICU and patient was started on Levophed infusion. His rhythm remained A. fib atrial fibrillation with RVR. I placed an emergent right femoral central line and a right radial arterial line for invasive blood pressure monitoring. Without sedation patient does not open eyes and I did not notice any purposeful movements. Patient also showing twitching of lips, and intermittent stiffening of whole body. A stat echo showed RV dilatation, with RV systolic dysfunction and TR, indicating possibility of PE. A stat PE pulmonary angiogram is pending at this time. Patient probably from the evidence available had a pulmonary arrest followed by cardiac arrest. Given the clinical picture I do not think he'll benefit from induced hypothermia for neuro protection, he had primary respiratory arrest. son and sister updated in detail. case also discussed with Dr. Matos and Dr. Ho 05/16: Remains intubated sedation held. Opens eyes spontaneously appears to track follows basic commands but gets agitated very fast. Moving all 4 extremities. Urine output 4.5 L in 24 hours 05/17: Patient was neurologically intact and extubated yesterday however, due to his severe sleep apnea he developed upper airway obstruction and respiratory arrest again. Emergently intubated and placed on mechanical ventilation. Intubation was difficult due to super morbid obesity and body habitus, BMI 52. Extensively discussed with family postintubation. Plan for tracheostomy (could be intermediate, permanent) today by Dr. Caballero Objective Vital Signs Date Time Temp Pulse Resp B/P (MAP) Pulse Ox O2 Delivery O2 Flow Rate FiO2 05/17/17 04:59 100 50 05/17/17 04:00 98.9 95 14 133/92 (106) 05/16/17 19:00 Mechanical Ventilator 05/16/17 09:25 6 Intake and Output 05/17/17 05/17/17 05/18/17 08:00 16:00 00:00 Intake Total 300 ml Output Total 1250 ml Balance -950 ml Result Diagram: 05/16/17 0450 05/16/17 0450 Imaging CXR Severe cardiomegaly, CHF Objective Remarks GENERAL: Intubated sedated heavily with propofol SKIN: Cool and dry. HEAD: Normocephalic EYES: Pupils equal round ENT: Orotracheally intubated NECK: Large neck, trachea midline CARDIOVASCULAR: Tachycardic irregular rhythm. No murmurs RESPIRATORY: Air entry diminished but equal bilaterally. On ACV GASTROINTESTINAL: Abdomen protuberant obese MUSCULOSKELETAL: Extremities cyanotic. Perfused NEUROLOGICAL: Intubated sedated with propofol moves all extremities. For patient's safety no sedation vacation A/P Assessment and Plan NEURO: S/p cardiac arrest, without significant anoxic injury - CT of the head no acute findings, EEG severe encephalopathy no seizures - Appears to have sustained respiratory arrest followed by cardiac arrest, with no evidence of significant neural injury - Continue frequent neuro checks - Patient is status post reintubation for respiratory arrest, continue heavy sedation with propofol Versed and fentanyl for patient safety until definite airway with tracheostomy is established RESP: Acute hypoxemic and hypercarbic respiratory failure Severe obstructive sleep apnea Recurrent respiratory arrest - Emergently intubated and placed on mechanical ventilation 05/15/17 - Extubated 05/16/17, reintubated within 2 hours due to severe upper airway obstruction, impending respiratory arrest - Tracheostomy in OR, with Dr. Bradley today - CT pulmonary angiogram negative for pulmonary embolism - DuoNeb every 6 hours scheduled and when necessary - Ventilator bundle, f/u Sputum culture CV: PEA Arrest, secondary to a respiratory arrest Cardiogenic shock Lactic acidosis Atrial fibrillation with RVR - Status post PEA cardiac arrest, CPR with ROSC in 8 min. (Down time may be more than 8 min, patient was found unresponsive and was not on telemetry) - Maintenance IV fluids - Levophed to keep map above 65, if needed - Atrial fib/flutter rate controlled, now in NSR. No anticoagulation due to anticipated tracheostomy - 2D Echo with RV dilation, and dysfunction. CT PE neg - Cardiology Dr. Matos. Rate controlled with Cardizem or beta corbin as tolerated - Serial to cardiac enzymes GI: Acute cholecystitis Morbid obesity with BMI 52 - Nothing by mouth, IV famotidine - Not stable for any procedures. Empiric Zosyn - Cholecystostomy tube once more stable, and definite airway established : Acute kidney injury - Monitor renal function closely. Weiner catheter. - Rise in Creat most likely ATN ID: Acute cholecystitis Probable sepsis - Blood urine and sputum cultures sent. - Continue Zosyn for now - Cholecystostomy tube after Tracheostomy is established HEME: - Monitor CBC, CMP ENDO: - Electrolyte replacement per protocol PROPH: - Bilateral lower extremity SCDs. Hold sq heparin for trach. IV famotidine LINES: - Right femoral central line and right radial arterial line placed in the ICU CC time 40 min discontinuously excluding procedure Calvin Siduh MD May 17, 2017 08:21
[2017-05-17] MEDS: HALOPERIDOL LACTATE 5 MG/ML AMP IV PRN (08:46)
--- NOTE | 2017-05-17 08:51 | ECHRPT ---
Indication: CONCLUSIONS Moderate concentric left ventricular hypertrophy. Normal left ventricular size. The left ventricular systolic function is low normal with estimated EF 50-55%. The right ventricle is moderately dilated. The right ventricular systoilc function is decreased. The left atrial size is [id number] dilated. The right atrial size is moderately dilated. Trace mitral valve regurgitation. There is trace tricuspid valve regurgitation. The estimated pulmonary arterial pressure is 38 mmHg. BP: 125 / 77 HR: Rhythm: Sinus MEASUREMENTS (Male / Female) Normal Values Technical Quality:Fair 2D ECHO LV Diastolic Diameter PLAX 4.5 cm 4.2 - 5.9 / 3.9 - 5.3 cm LV Systolic Diameter PLAX 3.9 cm IVS Diastolic Thickness 1.4 cm 0.6 - 1.0 / 0.6 - 0.9 cm LVPW Diastolic Thickness 1.4 cm 0.6 - 1.0 / 0.6 - 0.9 cm LV Relative Wall Thickness 0.6 RV Internal Dim ED PLAX 4.4 cm LVOT Diameter 1.9 cm Aortic Root Diameter 2.9 cm LA Systolic Diameter LX 4.3 cm 3.0 - 4.0 / 2.7 - 3.8 cm DOPPLER AV Peak Velocity 107.0 cm/s AV Peak Gradient 4.6 mmHg AV Mean Gradient 3.0 mmHg AV Velocity Time Integral 14.6 cm LVOT Peak Velocity 60.2 cm/s LVOT Peak Gradient 1.4 mmHg LVOT Velocity Time Integral 6.4 cm AV Area Cont Eq vti 1.2 cm AV Area Cont Eq pk 1.6 cm Mitral E Point Velocity 71.6 cm/s Mitral A Point Velocity 75.0 cm/s Mitral E to A Ratio 1.0 LV E' Lateral Velocity 12.5 cm/s Mitral E to LV E' Lateral Ratio 5.7 LV E' Septal Velocity 9.8 cm/s Mitral E to LV E' Septal Ratio 7.3 PV Peak Velocity 60.2 cm/s PV Peak Gradient 1.4 mmHg FINDINGS LEFT VENTRICLE Moderate concentric left ventricular hypertrophy. Normal left ventricular size. The left ventricular systolic function is low normal (EF 50-55%). RIGHT VENTRICLE The right ventricle is moderately dilated. The right ventricular systoilc function is decreased. LEFT ATRIUM The left atrial size is [id number] dilated. RIGHT ATRIUM The right atrial size is moderately dilated. ATRIAL SEPTUM Normal atrial septal thickness without atrial level shunting by limited color doppler interrogation. AORTA The aortic root and proximal ascending aorta are normal in size on limited imaging. MITRAL VALVE Trace mitral valve regurgitation. AORTIC VALVE Trileaflet aortic valve. No aortic valve stenosis or regurgitation. TRICUSPID VALVE There is trace tricuspid valve regurgitation. The estimated pulmonary arterial pressure is 38 mmHg. PULMONARY VALVE No pulmonary valve regurgitation or stenosis. VESSELS The inferior vena cava is normal in size. PERICARDIUM No pericardial effusion. Sean Fry MD, FACC Edited by: [facility] (Electronically Signed) Final Date:15 May 2017 11:25 Amended: 17 May 2017 08:50
[2017-05-17] MEDS: DOCUSATE SODIUM 50 MG/SENNA 8.6 MG TAB PO SCH ×2 (08:57→21:02)
[2017-05-17] MEDS: METOPROLOL TARTRATE 25 MG TAB PO SCH ×2 (08:57→21:02)
[2017-05-17] MEDS: SODIUM CHLORIDE 0.9% FLUSH 10 ML FLUSH IV FLUSH SCH ×2 (08:57→21:00)
[2017-05-17 09:00] LABS: BLOOD GAS BASE EXCESS 2.9 mmol/L (-2-2); BLOOD GAS CARBOXYHEMOGLOBIN 1.1 % (0-4); BLOOD GAS HCO3 27 mmol/L (22-26); BLOOD GAS METHEMOGLOBIN 1.1 % (0-2); BLOOD GAS O2 HGB SATURATION 95 % (90-100); BLOOD GAS OXYGEN CONTENT 18.3 Vol % (12.0-20.0); BLOOD GAS PCO2 42 mmHg (38-42); BLOOD GAS PO2 96 mmHg (61-120); BLOOD GAS TOTAL HGB 13.6 G/DL (12.0-16.0); CRITICAL VALUE NO; OXYGEN DEVICE VENTILATOR; TEMP CORR TO 98.6
[2017-05-17 09:01] LABS: DRAW SITE LT RADIAL; FIO2 50 %; NUMBER OF ARTERIAL PUNCTURES 1; STAT YES; ULNAR PULSE Y; VENT SETTINGS PRVCAC/VT650/R14/P10
--- NOTE | 2017-05-17 09:26 | RADRPT ---
EXAM DATE/TIME: 05/17/2017 08:54 [facility] COMPARISON: CHEST SINGLE AP, May 16, 2017, 12:18. INDICATIONS : Shortness of breath. MEDICAL HISTORY : Hypertension. diabetes. SURGICAL HISTORY : None. ENCOUNTER: Subsequent ACUITY: 2 days PAIN SCORE: Non-responsive. LOCATION: Bilateral chest FINDINGS: BP and nasogastric tube in good position. Cardiomegaly with moderate interstitial edema. Increasing pleural effusion and consolidation right base. CONCLUSION: Deterioration with increasing effusion consolidation right base cardiomegaly with [id number] fa ilure. Shaka Calvin MD FACR on May 17, 2017 at 9:23 Board Certified Radiologist. This report was verified electronically.
[2017-05-17 10:13] LABS: HEMATOCRIT 40.7 % (39.0-51.0); MEAN CELL VOLUME 82.8 FL (80.0-100.0); MEAN CORPUSCULAR HGB CONC 32.6 % (32.0-36.0); PLATELET COUNT 204 TH/MM3 (150-450); RED BLOOD COUNT 4.91 MIL/MM3 (4.50-5.90); REVIEW FLAG FINAL; WHITE BLOOD COUNT 8.6 TH/MM3 (4.0-11.0)
[2017-05-17 10:24] LABS: INTERNATIONAL NORMALIZED RATIO 1.2 RATIO; PROTHROMBIN TIME - PATIENT 11.8 SEC (9.8-11.6)
[2017-05-17 10:32] LABS: ANION GAP 9 MEQ/L (5-15); AST (GOT) 24 U/L (15-37); BLOOD UREA NITROGEN 21 MG/DL (7-18); CHLORIDE 109 MEQ/L (98-107); GLOMERULAR FILTRATION RATE 66 ML/MIN (>89); POTASSIUM 3.7 MEQ/L (3.5-5.1); SODIUM (NA) 144 MEQ/L (136-145)
[2017-05-17 10:35] LABS: ALKALINE PHOSPHATASE 83 U/L (45-117); ALT (GPT) 101 U/L (12-78); TOTAL BILIRUBIN ADULT 0.8 MG/DL (0.2-1.0)
[2017-05-17] MEDS: fentaNYL DRIP 250 ML IV PRN (10:36)
[2017-05-17] MEDS: MIDAZOLAM 100 MG/100 ML INJ 100 ML IV PRN (13:16)
[2017-05-17] MEDS: PIPERACIL-TAZO 3.375 GM PREMIX 50 ML IV SCH ×2 (15:12→21:03)
[2017-05-17] MEDS ORDERED: BUPIVACAINE/EPINEPHRINE 0.5% PF 30 ML VIAL ONE (15:18)
[2017-05-17] MEDS ORDERED: LIDOCAINE 1.5%/EPINEPHrine 1:200,000 PF SOLN 10ML SDV INFIL ONE (17:45)
[2017-05-18] VITALS (17 sets, daily range): BP systolic 93–136; BP diastolic 53–79; PULSE 69–135; RESP 14–15; TEMP 98.9–100; O2SAT 93–100
[2017-05-18] MEDS: fentaNYL DRIP 250 ML IV PRN ×2 (00:38→20:53)
[2017-05-18] MEDS: PROPOFOL 1000 MG/100 ML INJ 100 ML IV PRN ×5 (00:39→17:55)
[2017-05-18] MEDS: FAMOTIDINE 20 MG/2 ML VIAL IV PUSH SCH ×2 (00:39→13:03)
[2017-05-18] MEDS: RESP: ALBUTEROL 2.5 MG/IPRATROPIUM 0.5 MG NEB (SCH) NEB ×4 (02:52→21:28)
[2017-05-18] MEDS: PIPERACIL-TAZO 3.375 GM PREMIX 50 ML IV SCH ×4 (03:56→21:12)
--- NOTE | 2017-05-18 05:21 | RADRPT ---
EXAM DATE/TIME: 05/18/2017 04:27 [facility] COMPARISON: CHEST SINGLE AP, May 17, 2017, 8:54. INDICATIONS : Respiratory disease. MEDICAL HISTORY : Hypertension. Diabetes. SURGICAL HISTORY : None. ENCOUNTER: Subsequent ACUITY: 4 - 6 days PAIN SCORE: Non-responsive. LOCATION: Bilateral chest FINDINGS: There is a tracheostomy tube in place. There is no NG tube with its tip in the stomach. The heart siz e is enlarged. There is increased density seen throughout the lungs being worse at the bases. CONCLUSION: Suspected CHF with cardiac lead and diffuse consolidation and likely bilateral effusions. This appear ance is unchanged from the prior exam. Nahum Oliveira MD on May 18, 2017 at 5:18 Board Certified Radiologist. This report was verified electronically.
[2017-05-18] MEDS ORDERED: DEXMEDETOMIDINE INJ 200 MCG in SODIUM CHLORIDE 0.9% INJ 50 ML IV PRN (07:00)
--- NOTE | 2017-05-18 07:17 | HHI.CCPN ---
Subjective Remarks/Hospital Course Patient is a 46-year-old morbidly obese male with past medical history significant for hypertension, atrial flutter, diabetes mellitus type 2, anxiety, depression, morbid obesity with BMI of 52, obstructive sleep apnea who was admitted to the hospitalist service with a right upper quadrant pain and probable acute cholecystitis. He was recently admitted to [facility] for probable acute cholecystitis, he improved with antibiotics and was discharged home about or left AMA (unclear at this time) 2 days ago. He presented to [place] with similar complaints 05/14/17. CT scan at OSH showed right upper quadrant inflammatory changes with a thickened gallbladder suggest cholecystitis. Today. 05/15/17 Dr. Ho from general surgery was consulted and when he came to see the patient, patient was found unresponsive and pulseless. A CODE BLUE was called immediately and CPR was immediately started. see CPR note for details. I immediately responded to CODE BLUE. Rhythm was PEA/ Slow Atrial fibrillation. Patient received CPR 3 rounds of epinephrine, 1 amp of atropine per Dr. Lopez for slow PEA, and one amp of bicarbonate. Post intubation, patient had return of spontaneous circulation, total CPR time was 8 min. Patient was emergently moved to the ICU. Aggressive fluid resuscitation was continued, and there was palpable pulse and recordable blood pressure. Blood pressure started trending down in ICU and patient was started on Levophed infusion. His rhythm remained A. fib atrial fibrillation with RVR. I placed an emergent right femoral central line and a right radial arterial line for invasive blood pressure monitoring. Without sedation patient does not open eyes and I did not notice any purposeful movements. Patient also showing twitching of lips, and intermittent stiffening of whole body. A stat echo showed RV dilatation, with RV systolic dysfunction and TR, indicating possibility of PE. A stat PE pulmonary angiogram is pending at this time. Patient probably from the evidence available had a pulmonary arrest followed by cardiac arrest. Given the clinical picture I do not think he'll benefit from induced hypothermia for neuro protection, he had primary respiratory arrest. son and sister updated in detail. case also discussed with Dr. Matos and Dr. Ho 05/16: Remains intubated sedation held. Opens eyes spontaneously appears to track follows basic commands but gets agitated very fast. Moving all 4 extremities. Urine output 4.5 L in 24 hours 05/17: Patient was neurologically intact and extubated yesterday however, due to his severe sleep apnea he developed upper airway obstruction and respiratory arrest again. Emergently intubated and placed on mechanical ventilation. Intubation was difficult due to super morbid obesity and body habitus, BMI 52. Extensively discussed with family postintubation. Plan for tracheostomy (could be terminal supervisor, permanent) today by Dr. Caballero 05/18: s/p trach 05/[address] Caballero. remains heavily sedation. Off sedation moves all extremities and follows commands. CXR shows, bilateral pulmonary edema. IV Lasix 60 mg 1 and then 40 mg every 12 hours scheduled. Attempt weaning trials today. Start Precedex use Haldol when necessary. Objective Vital Signs Date Time Temp Pulse Resp B/P (MAP) Pulse Ox O2 Delivery O2 Flow Rate FiO2 05/18/17 04:01 96 50 05/18/17 04:00 99.0 69 15 93/59 (70) 05/17/17 20:00 Mechanical Ventilator 05/16/17 09:25 6 Intake and Output 05/18/17 05/18/17 05/19/17 08:00 16:00 00:00 Intake Total 250 ml Output Total 900 ml Balance -650 ml Result Diagram: 05/17/17 0945 05/17/17 0945 Other Results Microbiology Date/Time Source Procedure Growth Status 05/15/17 14:20 Sputum Endotracheal Gram Stain - Final Complete 05/15/17 14:20 Sputum Endotracheal Sputum Culture - Final NO GROWTH IN 48 HOURS. Complete 05/15/17 14:26 Urine Catheterized Urine Urine Culture - Final NO GROWTH IN 48 HOURS. Complete Laboratory Tests Test 05/17/17 08:55 Blood Gas Puncture Site LT RADIAL Blood Gas Patient Temperature 98.6 Blood Gas HCO3 27 mmol/L (22-26) Blood Gas Base Excess 2.9 mmol/L (-2-2) Blood Gas Oxygen Saturation 95 % (90-100) Arterial Blood pH 7.43 (7.380-7.420) Arterial Blood Partial Pressure CO2 42 mmHg (38-42) Arterial Blood Partial Pressure O2 96 mmHg (61-120) Arterial Blood Oxygen Content 18.3 Vol % (12.0-20.0) Arterial Blood Carboxyhemoglobin 1.1 % (0-4) Arterial Blood Methemoglobin 1.1 % (0-2) Blood Gas Hemoglobin 13.6 G/DL (12.0-16.0) Oxygen Delivery Device VENTILATOR Blood Gas Ventilator Setting PRVCAC/VT650/R14/P10 Blood Gas Inspired Oxygen 50 % Imaging CXR Severe cardiomegaly, CHF Objective Remarks GENERAL: Intubated sedated heavily with propofol, fentanyl and Versed SKIN: Cool and dry. HEAD: Normocephalic EYES: Pupils equal round ENT: Oral cavity is moist NECK: Large neck, trachea midline. New tracheostomy with, bloody secretions. No bleeding from the insertion site CARDIOVASCULAR: Tachycardic irregular rhythm-atrial fibrillation. No murmurs RESPIRATORY: Air entry diminished but equal bilaterally, with few crackles. On ACV GASTROINTESTINAL: Abdomen protuberant obese MUSCULOSKELETAL: Extremities appears well perfused NEUROLOGICAL: Patient is heavily sedated for safety. On lightening sedation he moves all extremities and intermittently follows commands. Urinary Catheter: Yes Assessment to: Continue A/P Assessment and Plan NEURO: S/p cardiac arrest, without significant anoxic injury - CT of the head no acute findings, EEG severe encephalopathy no seizures - Appears to have sustained respiratory arrest followed by cardiac arrest, with no evidence of significant neural injury - Continue frequent neuro checks - Currently heavy sedation with propofol Versed and fentanyl for patient safety. - Start Precedex, stat when necessary Haldol. Hospital is out of IV Ativan RESP: Acute hypoxemic and hypercarbic respiratory failure Severe obstructive sleep apnea Recurrent respiratory arrest Pulmonary edema Status post tracheostomy 05/17/17 - Emergently intubated and placed on mechanical ventilation 05/15/17 - Extubated 05/16/17, reintubated within 2 hours due to severe upper airway obstruction, impending respiratory arrest - s/p Tracheostomy in OR, with Dr. Caballero 05/17 - CT pulmonary angiogram negative for pulmonary embolism - Chest x-ray shows pulmonary edema. IV Lasix 60 mg 1 and 40 every 12 with potassium replacement placement - DuoNeb every 6 hours scheduled and when necessary - Ventilator bundle, f/u Sputum culture -neg to date CV: PEA Arrest, secondary to a respiratory arrest Cardiogenic shock-resolved Lactic acidosis Atrial fibrillation with RVR Pulmonary edema - Status post PEA cardiac arrest, CPR with ROSC in 8 min. (Down time may be more than 8 min, patient was found unresponsive and was not on telemetry) - Cardiac arrest most likely secondary to respiratory arrest from severe obstructive sleep apnea - Levophed to keep map above 65, if needed - Atrial fib/flutter rate controlled, now in NSR. No anticoagulation due to bloody trach secretions - 2D Echo with RV dilation, and dysfunction. CT PE neg - Cardiology Dr. Matos. Rate controlled with Cardizem or beta corbin as tolerated - Serial to cardiac enzymes GI: Acute cholecystitis Morbid obesity with BMI 52 - Nothing by mouth, IV famotidine. Start tube feedings today - Empiric Zosyn - Cholecystostomy tube once more stable, and can be safe to travel : Acute kidney injury - Monitor renal function closely. Weiner catheter. - Rise in Creat most likely ATN ID: Acute cholecystitis Probable sepsis - Blood urine and sputum cultures sent. All negative to date - Continue Zosyn for now - Cholecystostomy tube after Tracheostomy is established, and patient is deemed safe to travel HEME: - Monitor CBC, CMP ENDO: - Electrolyte replacement per protocol PROPH: - Bilateral lower extremity SCDs. Hold sq heparin due to bloody trach secretions reassess in 24 hours. IV famotidine LINES: - Right femoral central line and right radial arterial line placed in the ICU , arterial line DC the CC time 40 min discontinuously excluding procedure Calvin Sidhu MD May 18, 2017 07:17
[2017-05-18] MEDS ORDERED: FUROSEMIDE 20 MG/2 ML VIAL IV PUSH ONE (07:30)
[2017-05-18] MEDS: FUROSEMIDE 40 MG/4 ML VIAL IV PUSH SCH ×3 (07:48→17:41)
[2017-05-18] MEDS: SODIUM CHLORIDE 0.9% FLUSH 10 ML FLUSH IV FLUSH SCH ×2 (07:49→21:00)
[2017-05-18] MEDS: POTASSIUM CHLORIDE 25 MEQ EFFERVESCENT TAB PO SCH (07:50)
[2017-05-18] MEDS: INSULIN ASPART SUPPLEMENTAL SCALE SQ SCH ×4 (08:00→21:00)
[2017-05-18] MEDS ORDERED: ALTEPLASE RECOMBINANT 2 MG VIAL INTRACATH ONE (08:00)
--- NOTE | 2017-05-18 09:01 | RADRPT ---
EXAM DATE/TIME: 05/18/2017 07:50 [facility] COMPARISON: CHEST SINGLE AP, May 18, 2017, 4:27. INDICATIONS : Respiratory diseasse MEDICAL HISTORY : Hypertension. Diabetes. SURGICAL HISTORY : None. ENCOUNTER: Subsequent ACUITY: 4 - 6 days PAIN SCORE: Non-responsive. LOCATION: chest FINDINGS: Stable tracheostomy and NGT coursing near the GE junction. Persistent cardiomegaly with prominent michelle tral vasculature. Bilateral lower lung zone pleural plaque opacities unchanged from prior exam. Remai nder of the exam is unchanged. CONCLUSION: 1. Cardiomegaly with pulmonary edema pattern and stable bilateral lower lung zone pleural-parenchymal opacities. 2. No significant interval change. J uLis Maharaj MD on May 18, 2017 at 8:56 Board Certified Radiologist. This report was verified electronically.
[2017-05-18 09:38] LABS: AUTOMATED NEUTROPHIL # 6.1 TH/MM3 (1.8-7.7); BASOPHIL % 0.4 % (0.0-2.0); EOSINOPHIL # 0.3 TH/MM3 (0-0.4); EOSINOPHIL % 3.2 % (0.0-4.0); HEMATOCRIT 42.4 % (39.0-51.0); HEMO FLAGS DIFF FINAL; LYMPH % 12.5 % (9.0-44.0); LYMPHOCYTE # 1.1 TH/MM3 (1.0-4.8); MEAN CELL VOLUME 83.1 FL (80.0-100.0); MEAN CORPUSCULAR HEMOGLOBIN 27.4 PG (27.0-34.0); MEAN CORPUSCULAR HGB CONC 32.9 % (32.0-36.0); MONO % 10.6 % (0.0-8.0); NEUT % 73.3 % (16.0-70.0); PLATELET COUNT 225 TH/MM3 (150-450); RED CELL DISTRIBUTION WIDTH 14.7 % (11.6-17.2); WHITE BLOOD COUNT 8.4 TH/MM3 (4.0-11.0)
[2017-05-18 09:58] LABS: ANION GAP 8 MEQ/L (5-15); AST (GOT) 18 U/L (15-37); BICARBONATE 26.8 MEQ/L (21.0-32.0); BLOOD UREA NITROGEN 16 MG/DL (7-18); CHLORIDE 107 MEQ/L (98-107); GLOMERULAR FILTRATION RATE 63 ML/MIN (>89); MAGNESIUM 2.4 MG/DL (1.5-2.5); SODIUM (NA) 142 MEQ/L (136-145)
[2017-05-18 10:00] LABS: ALT (GPT) 81 U/L (12-78)
[2017-05-18 10:02] LABS: ALKALINE PHOSPHATASE 92 U/L (45-117); TOTAL BILIRUBIN ADULT 0.7 MG/DL (0.2-1.0)
[2017-05-18] MEDS: METOPROLOL TARTRATE 25 MG TAB PO SCH ×2 (10:12→20:55)
[2017-05-18] MEDS: DOCUSATE SODIUM 50 MG/SENNA 8.6 MG TAB PO SCH ×2 (10:13→20:55)
[2017-05-18] MEDS: HALOPERIDOL LACTATE 5 MG/ML AMP IV PRN (11:02)
[2017-05-18] MEDS ORDERED: PHENYLEPHRINE HCL 10 MG/ML VIAL ONE ×2 (11:25→11:28)
[2017-05-18] MEDS ORDERED: NOREPINEPHRINE INJ 4 MG in SODIUM CHLOR 0.9% 250 ML INJ 246 ML IV PRN (11:45)
[2017-05-18] MEDS ORDERED: TERBUTALINE INJ 1 MG/ML AMP SQ PRN ×2 (11:45)
[2017-05-18] MEDS ORDERED: SODIUM CHLOR 0.9% 1000 ML INJ 1,000 ML IV ONE (13:00)
[2017-05-18] MEDS ORDERED: PHENYLEPHRINE 40 MG in D5W 500 ML IV PRN (13:30)
[2017-05-18] MEDS: MIDAZOLAM 100 MG/100 ML INJ 100 ML IV PRN (20:54)
[2017-05-19] VITALS (14 sets, daily range): BP systolic 34–113; BP diastolic 26–72; PULSE 72–137; RESP 14; TEMP 99–99.6; O2SAT 77–97
[2017-05-19] MEDS: PROPOFOL 1000 MG/100 ML INJ 100 ML IV PRN ×3 (00:07→10:40)
[2017-05-19] MEDS: FAMOTIDINE 20 MG/2 ML VIAL IV PUSH SCH (00:07)
[2017-05-19] MEDS: PIPERACIL-TAZO 3.375 GM PREMIX 50 ML IV SCH ×2 (03:03→09:00)
[2017-05-19] MEDS: RESP: ALBUTEROL 2.5 MG/IPRATROPIUM 0.5 MG NEB (SCH) NEB ×2 (03:03→08:32)
[2017-05-19 06:58] LABS: AUTOMATED NEUTROPHIL # 6.6 TH/MM3 (1.8-7.7); BASOPHIL % 0.5 % (0.0-2.0); EOSINOPHIL # 0.3 TH/MM3 (0-0.4); EOSINOPHIL % 3.4 % (0.0-4.0); HEMATOCRIT 41.7 % (39.0-51.0); HEMO FLAGS DIFF FINAL; LYMPH % 12.9 % (9.0-44.0); LYMPHOCYTE # 1.2 TH/MM3 (1.0-4.8); MEAN CELL VOLUME 82.5 FL (80.0-100.0); MEAN CORPUSCULAR HEMOGLOBIN 27.1 PG (27.0-34.0); MEAN CORPUSCULAR HGB CONC 32.9 % (32.0-36.0); MONO % 11.6 % (0.0-8.0); NEUT % 71.6 % (16.0-70.0); PLATELET COUNT 218 TH/MM3 (150-450); RED BLOOD COUNT 5.05 MIL/MM3 (4.50-5.90); RED CELL DISTRIBUTION WIDTH 14.8 % (11.6-17.2); WHITE BLOOD COUNT 9.2 TH/MM3 (4.0-11.0)
[2017-05-19 07:19] LABS: ANION GAP 10 MEQ/L (5-15); AST (GOT) 15 U/L (15-37); BICARBONATE 25.6 MEQ/L (21.0-32.0); CHLORIDE 106 MEQ/L (98-107); GLOMERULAR FILTRATION RATE 72 ML/MIN (>89); POTASSIUM 4.2 MEQ/L (3.5-5.1); SODIUM (NA) 142 MEQ/L (136-145)
[2017-05-19 07:21] LABS: ALT (GPT) 58 U/L (12-78)
[2017-05-19 07:22] LABS: ALKALINE PHOSPHATASE 102 U/L (45-117); TOTAL BILIRUBIN ADULT 1.1 MG/DL (0.2-1.0)
[2017-05-19 07:33] LABS: BLOOD UREA NITROGEN 16 MG/DL (7-18)
[2017-05-19] MEDS: INSULIN ASPART SUPPLEMENTAL SCALE SQ SCH (08:00)
[2017-05-19] MEDS: FUROSEMIDE 40 MG/4 ML VIAL IV PUSH SCH (08:56)
[2017-05-19] MEDS: METOPROLOL TARTRATE 25 MG TAB PO SCH ×2 (08:57→09:21)
[2017-05-19] MEDS: SODIUM CHLORIDE 0.9% FLUSH 10 ML FLUSH IV FLUSH SCH (08:57)
[2017-05-19] MEDS: POTASSIUM CHLORIDE 25 MEQ EFFERVESCENT TAB PO SCH (08:57)
[2017-05-19] MEDS: DOCUSATE SODIUM 50 MG/SENNA 8.6 MG TAB PO SCH (08:57)
[2017-05-19] MEDS: HALOPERIDOL LACTATE 5 MG/ML AMP IV PRN (09:17)
[2017-05-19] MEDS ORDERED: RESP: ALBUTEROL 2.5 MG/IPRATROPIUM 0.5 MG NEB (SCH) NEB (10:00)
[2017-05-19 10:55] LABS: BLOOD GAS BASE EXCESS -1.6 mmol/L (-2-2); BLOOD GAS CARBOXYHEMOGLOBIN 0.9 % (0-4); BLOOD GAS HCO3 25 mmol/L (22-26); BLOOD GAS METHEMOGLOBIN 0.7 % (0-2); BLOOD GAS O2 HGB SATURATION 87 % (90-100); BLOOD GAS OXYGEN CONTENT 18.1 Vol % (12.0-20.0); BLOOD GAS PCO2 61 mmHg (38-42); BLOOD GAS PO2 68 mmHg (61-120); BLOOD GAS TOTAL HGB 14.8 G/DL (12.0-16.0); TEMP CORR TO 98.6
[2017-05-19 10:56] LABS: CRITICAL VALUE YES; FIO2 100 %; LITER FLOW 15 L/M; OXYGEN DEVICE AMBU
[2017-05-19 10:57] LABS: DRAW SITE LT FEMORAL; NUMBER OF ARTERIAL PUNCTURES 4; STAT NO
[2017-05-19] MEDS ORDERED: AMIODARONE INJ 150 MG in DEXTROSE 5% IN WATER 100ML INJ 100 ML IV ONE ×2 (11:00)
[2017-05-19] MEDS ORDERED: AMIODARONE INJ 450 MG in DEXTROSE 5% IN WATE(EXCEL) INJ 241 ML IV PRN ×2 (11:00)
[2017-05-19] MEDS ORDERED: EPOPROSTENOL NEB SOLUTION 50 NG/KG/MIN 100 ML NEB SCH ×2 (11:00)
--- NOTE | 2017-05-19 11:25 | RADRPT ---
EXAM DATE/TIME: 05/19/2017 10:46 [facility] COMPARISON: CHEST SINGLE AP, May 18, 2017, 7:50. INDICATIONS : Hypoxia. MEDICAL HISTORY : Hypertension. Diabetes. SURGICAL HISTORY : None. ENCOUNTER: Subsequent ACUITY: 4 - 6 days PAIN SCORE: Non-responsive. LOCATION: Bilateral chest FINDINGS: Trach tube nasogastric tube in good position. The heart remains enlarged with improving aeration. M oderate bibasilar parenchymal changes are evident. There is no significant fluid. CONCLUSION: Trach tube, improved with better aeration. Shaka Calvin MD FACR on May 19, 2017 at 11:22 Board Certified Radiologist. This report was verified electronically.
--- NOTE | 2017-05-19 11:38 | MP ---
cc: EMILE MENDOZA DATE OF 1970 DATE OF OPERATION 05/17/2017 PREOPERATIVE DIAGNOSIS Respiratory failure. POSTOPERATIVE DIAGNOSIS Respiratory failure. PROCEDURE Percutaneous tracheostomy with bronchoscopic guidance Blue Rhino kit [id number] Shiley placed. SURGEON Emile Mendoza MD ANESTHESIA General endotracheal anesthesia. ESTIMATED BLOOD LOSS Scant. COMPLICATIONS None. OPERATION The patient was placed on the operating table in supine position. A back roll was placed under his back and his neck extended. His neck was then prepped and draped sterilely. 1% lidocaine was used to anesthetize the skin and subcutaneous tissue just above the sternal notch. Skin incision was made. Using blunt dissection the trachea was encountered. Bronchoscopy was placed through the ET tube. The ET tube was pulled back and 16 gauge needle was placed. Angiocath was placed, position confirmed to be in the trachea using bronchoscopy. There was a knot due to the back roll. The trachea was dilated with a Blue Rhino dilator kit, #8 Shiley XLT proximal was placed. It was confirmed to be within the trachea with bronchoscopy. The Shiley was then secured to the neck using 2-0 Prolene. A trache dressing was then placed. The patient was taken back to [facility] and ventilated. Emile Mendoza MD JS/SSB /4:36 PM /11:08 AM
[2017-05-19] MEDS ORDERED: IOHEXOL 350 MG/ML 10 ML VIAL (for RAD DIAG) IVCONTRAST ONE (11:50)
--- NOTE | 2017-05-19 12:15 | RADRPT ---
EXAM DATE/TIME: 05/19/2017 11:18 [facility] COMPARISON: No previous studies available for comparison. INDICATIONS : Obstruction, atrial flutter. IV CONTRAST: 75 cc Omnipaque 350 (iohexol) IV RADIATION DOSE: 26.58 CTDIvol (mGy) ; Patient body habitus MEDICAL HISTORY : Cardiovascular disease. Hypertension. Diabetes.Vented patient. SURGICAL HISTORY : None. ENCOUNTER: Initial ACUITY: 1 day PAIN SCALE: Non-responsive LOCATION: chest TECHNIQUE: Volumetric scanning of the chest was performed using a pulmonary embolism protocol MIP images were re constructed. Using automated exposure control and adjustment of the mA and/or kV according to patien t size, radiation dose was kept as low as reasonably achievable to obtain optimal diagnostic quality images. DICOM format image data is available electronically for review and comparison. Follow-up recommendations for detected pulmonary nodules are based at a minimum on nodule size and pa tient risk factors according to Fleischner Society Guidelines. FINDINGS: No filling defects to suggest pulmonary embolus. Small to moderate right effusion and small left effu jair. Basilar dependent lung consolidation similar to May 15. Endotracheal tube in good position . Nasogastric tube enters stomach. No adenopathy. No pericardial effusion. CONCLUSION: 1. Negative for pulmonary embolus. 2. Persistent effusions and dependent consolidation in the lungs. Raul Matos MD on May 19, 2017 at 12:12 Board Certified Radiologist. This report was verified electronically.
[2017-05-19] MEDS ORDERED: VASOPRESSIN INJ 40 UNITS in DEXTROSE 5% IN WATER 100ML INJ 98 ML IV SCH ×2 (12:53)
--- NOTE | 2017-05-19 12:54 | PD.PROCEDR ---
Procedure Note Procedure DATE: 05/19/2017 PROCEDURE: Right axillary arterial catheter placement INDICATION: Hemodynamic access DETAILS OF PROCEDURE The patient was placed in supine position. The skin was cleansed with Chloraprep. Additional barrier precautions included large sterile drape, sterile gloves, sterile gown, face mask, and hat. 1% lidocaine was used for local anesthesia. Under direct ultrasound guidance and on the [] attempt, the artery was accessed with an introducer needle. The guide wire was advanced. Using Seldinger technique 20 gauge arterial catheter was placed. The guide wire was removed. The catheter was connected to a transducer line and flushed with saline. The video monitor displayed normal arterial wave forms. The catheter was secured with 2-0 silk. A sterile dressing with antibiotic disc was applied. ESTIMATED BLOOD LOSS: minimal COMPLICATIONS: None Hernan Serna MD May 19, 2017 12:54
--- NOTE | 2017-05-19 12:55 | HHI.CCPN ---
Subjective Remarks/Hospital Course Patient is a 46-year-old morbidly obese male with past medical history significant for hypertension, atrial flutter, diabetes mellitus type 2, anxiety, depression, morbid obesity with BMI of 52, obstructive sleep apnea who was admitted to the hospitalist service with a right upper quadrant pain and probable acute cholecystitis. He was recently admitted to [facility] for probable acute cholecystitis, he improved with antibiotics and was discharged home about or left AMA (unclear at this time) 2 days ago. He presented to [place] with similar complaints 05/14/17. CT scan at OSH showed right upper quadrant inflammatory changes with a thickened gallbladder suggest cholecystitis. Today. 05/15/17 Dr. Ho from general surgery was consulted and when he came to see the patient, patient was found unresponsive and pulseless. A CODE BLUE was called immediately and CPR was immediately started. see CPR note for details. I immediately responded to CODE BLUE. Rhythm was PEA/ Slow Atrial fibrillation. Patient received CPR 3 rounds of epinephrine, 1 amp of atropine per Dr. Lopez for slow PEA, and one amp of bicarbonate. Post intubation, patient had return of spontaneous circulation, total CPR time was 8 min. Patient was emergently moved to the ICU. Aggressive fluid resuscitation was continued, and there was palpable pulse and recordable blood pressure. Blood pressure started trending down in ICU and patient was started on Levophed infusion. His rhythm remained A. fib atrial fibrillation with RVR. I placed an emergent right femoral central line and a right radial arterial line for invasive blood pressure monitoring. Without sedation patient does not open eyes and I did not notice any purposeful movements. Patient also showing twitching of lips, and intermittent stiffening of whole body. A stat echo showed RV dilatation, with RV systolic dysfunction and TR, indicating possibility of PE. A stat PE pulmonary angiogram is pending at this time. Patient probably from the evidence available had a pulmonary arrest followed by cardiac arrest. Given the clinical picture I do not think he'll benefit from induced hypothermia for neuro protection, he had primary respiratory arrest. son and sister updated in detail. case also discussed with Dr. Matos and Dr. Ho 05/16: Remains intubated sedation held. Opens eyes spontaneously appears to track follows basic commands but gets agitated very fast. Moving all 4 extremities. Urine output 4.5 L in 24 hours 05/17: Patient was neurologically intact and extubated yesterday however, due to his severe sleep apnea he developed upper airway obstruction and respiratory arrest again. Emergently intubated and placed on mechanical ventilation. Intubation was difficult due to super morbid obesity and body habitus, BMI 52. Extensively discussed with family postintubation. Plan for tracheostomy (could be buttermaker, permanent) today by Dr. Caballero 05/18: s/p trach 05/[address] Caballero. remains heavily sedation. Off sedation moves all extremities and follows commands. CXR shows, bilateral pulmonary edema. IV Lasix 60 mg 1 and then 40 mg every 12 hours scheduled. Attempt weaning trials today. Start Precedex use Haldol when necessary. Subjective 05/19: Please see below. Patient with desaturations in AM and A. fib with RVR. CT pulmonary angiogram revealed no pulmonary embolism. Small bilateral pleural effusions. Patient with no palpable pulse. Stat right axillary arterial line placed with blood pressures maps in the 50s. Increase vasopressors and gave fluid challenge. Patient converted the. Be in first degree heart block. QRS appeared widened so EKG was ordered. Prior to this completed, patient in pulseless electrical activity and CPR initiated. See below Objective Vital Signs Date Time Temp Pulse Resp B/P (MAP) Pulse Ox O2 Delivery O2 Flow Rate FiO2 05/19/17 08:34 97 45 05/19/17 04:00 99.2 91 14 111/55 (73) 05/18/17 19:00 Mechanical Ventilator 05/16/17 09:25 6 Intake and Output 05/19/17 05/19/17 05/20/17 08:00 16:00 00:00 Intake Total 250 ml Output Total 2500 ml Balance -2250 ml Result Diagram: 05/19/17 0600 05/19/17 0600 Other Results Microbiology Date/Time Source Procedure Growth Status 05/15/17 13:40 Blood Peripheral Aerobic Blood Culture - Preliminary NO GROWTH IN 4 DAYS Resulted 05/15/17 13:40 Blood Peripheral Anaerobic Blood Culture - Preliminary NO GROWTH IN 4 DAYS Resulted 05/15/17 14:20 Sputum Endotracheal Gram Stain - Final Complete 05/15/17 14:20 Sputum Endotracheal Sputum Culture - Final NO GROWTH IN 48 HOURS. Complete 05/18/17 09:15 Urine Catheterized Urine Urine Culture - Preliminary NO GROWTH IN 24 HOURS. Resulted Imaging Last Impressions Chest X-Ray 05/19/17 1025 Signed Impressions: Service Date/Time: Friday, May 19, 2017 10:46 - CONCLUSION: Trach tube, improved with better aeration. Shaka Calvin MD FACR CT Angiography 05/19/17 0000 Signed Impressions: Service Date/Time: Friday, May 19, 2017 11:18 - CONCLUSION: 1. Negative for pulmonary embolus. 2. Persistent effusions and dependent consolidation in the lungs. Raul Matos MD Head CT 05/15/17 0000 Signed Impressions: Service Date/Time: Monday, May 15, 2017 11:33 - CONCLUSION: 1. No acute intracranial abnormality. J Luis Maharaj MD Gall Bladder Ultrasound 05/14/17 0000 Signed Impressions: Service Date/Time: Sunday, May 14, 2017 15:10 - CONCLUSION: Heterogeneous enlarged echogenic liver with surrounding ascites. The adjacent gallbladder wall is somewhat thick walled. Janusz Fernandez MD Objective Remarks GENERAL: 38-year-old male, critically ill SKIN: Cool and dry. Vital HEAD: Normocephalic EYES: Pupils equal round ENT: Oral cavity is moist and pink. NECK: Large neck, trachea midline. [place] XLT tracheostomy with, bloody secretions. No bleeding from the insertion site CARDIOVASCULAR: Tachycardic irregular rhythm-atrial fibrillation. No murmurs RESPIRATORY: Air entry diminished but equal bilaterally, with few crackles. On PRVC GASTROINTESTINAL: Abdomen protuberant obese MUSCULOSKELETAL: Extremities are mottled and cool. NEUROLOGICAL: Patient is heavily sedated for safety. On lightening sedation he moves all extremities and intermittently follows commands as AM but became agitated so we sedated A/P Assessment and Plan NEURO: S/p cardiac arrest, without significant anoxic injury - CT of the head no acute findings, EEG severe encephalopathy no seizures - Appears to have sustained respiratory arrest followed by cardiac arrest, with no evidence of significant neural injury - Continue frequent neuro checks - Currently heavy sedation with propofol medazepam and fentanyl for patient safety. - Initially weaning with dexmedetomidine RESP: Acute hypoxemic and hypercarbic respiratory failure Severe obstructive sleep apnea Recurrent respiratory arrest Pulmonary edema Status post tracheostomy 05/17/17 - Emergently intubated and placed on mechanical ventilation 05/15/17 - Extubated 05/16/17, reintubated within 2 hours due to severe upper airway obstruction, impending respiratory arrest - s/p Tracheostomy in OR, with Dr. Caballero 05/17 - CT pulmonary angiogram negative for pulmonary embolism - Chest x-ray shows pulmonary edema. IV Lasix 60 mg 1 and 40 every 12 with potassium replacement placement - DuoNeb every 6 hours scheduled and when necessary - Ventilator bundle, f/u Sputum culture -neg to date CV: PEA Arrest, secondary to respiratory arrest PEA arrest - possible cardiogenic with ST changes and anterior and lateral leads on EKG after ROSC at 1310 Cardiogenic shock-resolved Lactic acidosis Atrial fibrillation with RVR Pulmonary edema - Status post PEA cardiac arrest, CPR with ROSC in 8 min. (Down time may be more than 8 min, patient was found unresponsive and was not on telemetry) C CODE BLUE note for 05/19 - Initial Cardiac arrest most likely secondary to respiratory arrest from severe obstructive sleep apnea. Second cardiac arrest possibly STEMI. Not PE. No pneumothorax. -Currently on Shayan-Synephrine, norepinephrine and epinephrine drips to keep map above 65 - Atrial fib/flutter rate - converted to normal sinus rhythm this AM. No anticoagulation due to bloody trach secretions - 2D Echo with EF of 50-55% RV dilation, and dysfunction. CT PE neg 2 - Cardiology Dr. Matos. Rate controlled with Cardizem or beta corbin as tolerated - Serial to cardiac enzymes were negative 3 on 05/16 GI: Acute cholecystitis Morbid obesity with BMI 52 - Nothing by mouth, IV famotidine. Start tube feedings today - Empiric Zosyn - Cholecystostomy tube once more stable, and can be safe to travel : Acute kidney injury - Monitor renal function closely. Weiner catheter. - Rise in Creat most likely ATN ID: Acute cholecystitis Probable sepsis - Blood urine and sputum cultures sent. All negative to date - Continue Zosyn for now - Cholecystostomy tube once patient is deemed safe to travel HEME: - Monitor CBC, CMP ENDO: - Electrolyte replacement per protocol PROPH: - Bilateral lower extremity SCDs. Hold sq heparin due to bloody trach secretions reassess in 24 hours. IV famotidine LINES: - Right femoral central line and right radial arterial line placed in the ICU , right axillary arterial line placed 05/19 CC time 40 min discontinuously excluding procedure Hernan Serna MD May 19, 2017 12:55
[2017-05-19] MEDS ORDERED: NOREPINEPHRINE INJ 4 MG in SODIUM CHLOR 0.9% 250 ML INJ 246 ML IV PRN (13:00)
[2017-05-19] MEDS ORDERED: SODIUM CHLOR 0.9% 1000 ML INJ 1,000 ML IV ONE (13:00)
[2017-05-19] MEDS ORDERED: TERBUTALINE INJ 1 MG/ML AMP SQ PRN (13:00)
[2017-05-19] MEDS ORDERED: ALBUMIN 5% INJ 500 ML IV ONE (14:00)
[2017-05-19 14:02] LABS: HEMATOCRIT 43.7 % (39.0-51.0); MEAN CELL VOLUME 85.7 FL (80.0-100.0); MEAN CORPUSCULAR HEMOGLOBIN 26.9 PG (27.0-34.0); MEAN CORPUSCULAR HGB CONC 31.3 % (32.0-36.0); PLATELET COUNT 177 TH/MM3 (150-450); REVIEW FLAG FINAL; WHITE BLOOD COUNT 10.6 TH/MM3 (4.0-11.0)
[2017-05-19 14:08] LABS: INTERNATIONAL NORMALIZED RATIO 1.3 RATIO; PROTHROMBIN TIME - PATIENT 13.6 SEC (9.8-11.6)
--- NOTE | 2017-05-19 14:35 | PD.PROCEDR ---
Procedure Note Procedure CODE BLUE 1302 - PEA rest. Patient is currently on norepinephrine at 40 mg per minute 10 phenylephrine in the 100 micros per minute. Chest compressions were initiated. Patient received 2 mg epinephrine, one ampule bicarbonate 10 one amp of calcium gluconate. At 1307, patient did tachycardia defibrillator with 300 J. CPR resumed and patient received 300 mg IV amiodarone and 1 mg epinephrine.ROSC at 1310. Noted patient received 2 additional episode of bicarbonate. At 1320, patient was started on epinephrine drip at 10 mics grams per minute. Chest compressions resumed. Patient received 2 mg epinephrine and 2 ampules of bicarbonate. ROSC at 1330. PEA arrest at 1333. Patient received 4 mg epinephrine, one of bicarbonate and 1 of 1 g ampule of calcium chloride. Family desires cessation of code at 1343. Hernan Serna MD May 19, 2017 14:35
[2017-05-19 14:41] LABS: ALKALINE PHOSPHATASE 117 U/L (45-117); ALT (GPT) 2782 U/L (12-78); ANION GAP 15 MEQ/L (5-15); AST (GOT) 2509 U/L (15-37); BICARBONATE 27.4 MEQ/L (21.0-32.0); BLOOD UREA NITROGEN 21 MG/DL (7-18); CHLORIDE 104 MEQ/L (98-107); GLOMERULAR FILTRATION RATE 28 ML/MIN (>89); MAGNESIUM 2.9 MG/DL (1.5-2.5); POTASSIUM 5.1 MEQ/L (3.5-5.1); SODIUM (NA) 146 MEQ/L (136-145); TOTAL BILIRUBIN ADULT 1.6 MG/DL (0.2-1.0)
--- NOTE | 2017-05-19 21:28 | HHI.PR ---
Addendum to Inpatient Note Addendum Reason: Additional Documentation Additional Information Resident team was paged to [facility] at 1301 on . Upon arrival patient had already achieved ROSC. Dr. Serna was present to manage the post-resuscitory efforts. Haroon Pina MD R1 May 19, 2017 21:28
--- NOTE | 2017-05-22 10:24 | EKG ---
Date Performed: 05/19/2017 Time Performed: 13:29:18 PTAGE: 46 years EKG: Sinus rhythm with 1st degree A-V block. Right axis deviation Right bundle branch block Possible septal infarct - age undetermined Inferior ST-T changes are nonspecific Abnormal ECG PREVIOUS TRACING : 05/15/2017 14.51 Compared to the previous tracing a flutter no longer presen t DOCTOR: Sean Fry Interpretating Date/Time 05/22/2017 10:23:00
== END 2017-05-19 23:40 | disposition expired | DRG 4 ==
LOC: NEPE 12:53 → NEDH 16:25 → N04B 18:37 → N03B 05-15 08:45
PROVIDERS: ADMIT Internal Medicine; ATTEND Internal Medicine
PROC: 03HY32Z Insertion of Monitoring Device into Upper Artery, Percutaneous Approach (ICD-10-PCS; 2017-05-15)
PROC: 5A12012 Performance of Cardiac Output, Single, Manual (ICD-10-PCS; 2017-05-15)
PROC: 0BH17EZ Insertion of Endotracheal Airway into Trachea, Via Natural or Artificial Opening (ICD-10-PCS; 2017-05-15)
PROC: 5A1935Z Respiratory Ventilation, Less than 24 Consecutive Hours (ICD-10-PCS; 2017-05-15)
PROC: 06HY33Z Insertion of Infusion Device into Lower Vein, Percutaneous Approach (ICD-10-PCS; 2017-05-15)
PROC: 5A1945Z Respiratory Ventilation, 24-96 Consecutive Hours (ICD-10-PCS; 2017-05-16)
PROC: 0BH17EZ Insertion of Endotracheal Airway into Trachea, Via Natural or Artificial Opening (ICD-10-PCS; 2017-05-16)
PROC: 0B113F4 Bypass Trachea to Cutaneous with Tracheostomy Device, Percutaneous Approach (ICD-10-PCS; principal; 2017-05-17 15:41)
PROC: 03HY32Z Insertion of Monitoring Device into Upper Artery, Percutaneous Approach (ICD-10-PCS; 2017-05-19)
DX: A41.9 Sepsis, unspecified organism (principal); I46.9 Cardiac arrest, cause unspecified; J96.01 Acute respiratory failure with hypoxia; J96.02 Acute respiratory failure with hypercapnia; N17.0 Acute kidney failure with tubular necrosis; K81.0 Acute cholecystitis; G93.40 Encephalopathy, unspecified; Z68.43 Body mass index [BMI] 50.0-59.9, adult; I48.92 Unspecified atrial flutter; E87.2 Acidosis; R18.8 Other ascites; E66.01 Morbid (severe) obesity due to excess calories; E11.9 Type 2 diabetes mellitus without complications; E78.5 Hyperlipidemia, unspecified; I10 Essential (primary) hypertension; F41.9 Anxiety disorder, unspecified; F32.9 Major depressive disorder, single episode, unspecified; Z79.84 Long term (current) use of oral hypoglycemic drugs; G47.33 Obstructive sleep apnea (adult) (pediatric); I48.91 Unspecified atrial fibrillation; I44.0 Atrioventricular block, first degree; R16.0 Hepatomegaly, not elsewhere classified
CPT/HCPCS: 31500; 36556; 36600; 70450; 71010; 71275; 76705; 76937; 80048; 80053; 81001; 82550; 82552; 82805; 82948; 83605; 83690; 83735; 84100; 84484; 85025; 85027; 85610; 85730; 87040; 87070; 87086; 87205; 87641; 92950; 93005; 93306; 94002; 94003; 94640; 94664; 94667; 95819; 96360; 96361; C9113; J0171; J0360; J0461; J0780; J1630; J1644; J1815; J1940; J2250; J2270; J2370; J2405; J2543; J2997; J3010; J3480; J7030; J7042; J7050; J7060; Q9967